=== PATIENT | female | born 1950 | race Caucasian/White ===

== ENCOUNTER 2023-07-23 10:32 | Inpatient (IN) ==
--- NOTE | 2023-07-23 11:03 | Emergency Department Note ---
Impression & Plan Hypoxia, Leg swelling, Back pain ED Provider Note Provider: Sha Ramon MD DATE OF SERVICE: 07/23/2023 CHIEF COMPLAINT: Leg swelling, upper back pain HISTORY OF PRESENT ILLNESS: Patient is a 73-year-old female smoker history of aortic aneurysm status postrepair by report presenting here today via ambulance from her apartment. Patient states over the last several days she had increased swelling of her bilateral legs now have become somewhat red and painful. CT is also been experiencing for undetermined amount of time some pain in the lower thoracic back that hurts more with a deep breath. Patient is a longtime smoker. States she does not normally go to the doctor and has not seen a doctor in years. Does not take any medications. Found by EMS to be hypoxic into the 80s on room air. Denies any acute chest pain or abdominal pain to me. Son of the bilateral lower legs but denies falls. No fevers clearly reported. PAST MEDICAL HISTORY: As noted above MEDICATIONS: None SOCIAL HISTORY: Smoker PHYSICAL EXAM: GENERAL: alert and oriented in no acute distress on stretcher, nasal cannula in place Head: normocephalic and atraumatic EYES: No injection, discharge or icterus.EOMI. NECK: Trachea midline. ENT: Mucous membranes pink and moist. LUNGS: Airway patent. No retractions. Breath sounds with some expiratory wheeze HEART: Regular rate and rhythm. No chest wall tenderness ABDOMEN: Soft and non-tender, without guarding or rebound. No hepatosplenomegaly or masses BACK: No midline tenderness, no SI joint tenderness. No bilateral flank tenderness. Some diffuse paraspinal tenderness of the mid to lower thoracic region bilaterally without overlying rash or crepitus. SKIN: Acyanotic, warm, dry, without rashes EXTREMITIES: Without swelling, tenderness or deformity of the upper extremities. The bilateral lower extremities below the knees with 2-3+ edema with erythema noted. No open wounds or weeping appreciated. NEUROLOGICAL: No focal deficits. No aphasia. No facial droop or slurred speech. EK bpm normal sinus rhythm. No PVC or PAC. No acute ST segment elevation or depression with a QTc of 385 CONTINUOUS CARDIAC MONITORING: was ordered and showed a heart rate of 80s-90s bpm in sinus rhythm Patient's laboratory studies and imaging reviewed. Differential includes Reactive airway disease, pneumonia, pneumothorax, COPD, CHF, infections, cardiac ischemia, pulmonary embolism, musculoskeletal, gastrointestinal, as well as other pathologies. IMPRESSION/MEDICAL DECISION MAKING: Patient evidently does not follow with medical care and now has new bilateral leg swelling as well as pain in mid thoracic back. Longtime smoker. Hypoxic on room air; stable on 2-3L NC. Question if this is fluid overload. Will exclude underlying pulmonary pathology given her long smoking history and the pain with a CT of the chest. Doubt acute aortic dissection and does have a history of aortic repair in the past. EKG obtained without STEMI. Denies chest pain. Benign abdomen.. Does not seem altered. No focal deficits. Nebulizer to see if this improves her breathing. Chest x-ray does question some findings in the right lower lung area. Again will further elucidate with CT of the chest. Patient later refused CT scan states she cannot lay flat and when advised of limitations with testing she again continued to refuse this. Lower suspicion for PE at this time or bilateral sudden DVT. Blood work without severe abnormalities. No leukocytosis. No significant acute renal dysfunction. Troponin normal. BNP mildly elevated. Respiratory viral panel negative. Albumin normal. Do question more so if the x-ray represents possibly a mass rather than pneumonia at this time. Will begin some diuresis with Lasix given the significant swelling of the lower extremities. Discussed with her staying in the hospital for further workup and evaluation and she was in agreement with this. Patient likely benefit from cardiac echo for further definition of if this is heart related swelling. Did advise her that hopefully some diuresis improved swelling and we may work on trying to complete the CT scans in the near future. She states she would consider this. DIAGNOSIS: Hypoxia, tobacco use, leg swelling DISPOSITION: Hospitalist will evaluate Patient was agreeable with this plan. Past Med/Surg History Medical History (Updated 07/23/23 @ 14:06 by Malia Sanchez PA-C) Sigmoid diverticulitis DVT of upper extremity (deep vein thrombosis) catheter-associated, completed 30 days Eliquis COPD (chronic obstructive pulmonary disease) AAA (abdominal aortic aneurysm) Surgical History (Updated 07/23/23 @ 14:06 by Malia Sanchez PA-C) S/P tonsillectomy S/P AAA repair Social History Smoking Status: Current every day smoker Tobacco Type: Cigarettes Hx Alcohol Use: No Feels Safe at Home: Yes Home Meds Home Medications Medication Instructions Recorded Confirmed fluticasone furoate 100 1 inh inhalation DAILY PRN SOB 07/23/23 07/23/23 mcg-vilanterol 25 mcg/dose inhalation powder (Breo Ellipta) Results & Data (ED) Vital Signs Vital Signs - 24 hr 07/23/23 10:37 07/23/23 10:38 07/23/23 11:03 Temperature 36.8 C Temperature Source Oral Pulse Rate 86 Pulse Rate [Left Apical] Respiratory Rate 20 Respiratory Effort / Characteristics Labored Respiratory Depth Deep Blood Pressure 175/115 H Blood Pressure [Right Arm] Blood Pressure Mean 135 Blood Pressure Mean [Right Arm] Blood Pressure Position Standing Pulse Oximetry 85 L 93 96 Oxygen Delivery Method Room Air Nasal Cannula Nasal Cannula Oxygen Flow Rate 2 2 Sepsis Recent Fever Within 48 Hours No Sepsis New/Unexplained Change in Mental Status No Sepsis Action Taken by Nursing No Action Required 07/23/23 11:46 07/23/23 11:53 07/23/23 12:00 Temperature Temperature Source Pulse Rate 86 83 Pulse Rate [Left Apical] 87 Respiratory Rate 22 21 Respiratory Effort / Characteristics Short of Breath Tripoding Respiratory Depth Blood Pressure 151/109 H Blood Pressure [Right Arm] 150/93 H Blood Pressure Mean 123 Blood Pressure Mean [Right Arm] 112 Blood Pressure Position Pulse Oximetry 98 92 Oxygen Delivery Method Nasal Cannula Nasal Cannula Oxygen Flow Rate 2 2 Sepsis Recent Fever Within 48 Hours Sepsis New/Unexplained Change in Mental Status Sepsis Action Taken by Nursing 07/23/23 12:30 07/23/23 13:00 07/23/23 13:30 Temperature Temperature Source Pulse Rate 84 85 80 Pulse Rate [Left Apical] Respiratory Rate 24 22 21 Respiratory Effort / Characteristics Respiratory Depth Blood Pressure 152/109 H 158/106 H 152/108 H Blood Pressure [Right Arm] Blood Pressure Mean 123 123 122 Blood Pressure Mean [Right Arm] Blood Pressure Position Pulse Oximetry 91 91 93 Oxygen Delivery Method Nasal Cannula Nasal Cannula Nasal Cannula Oxygen Flow Rate 3 3 3 Sepsis Recent Fever Within 48 Hours Sepsis New/Unexplained Change in Mental Status Sepsis Action Taken by Nursing 07/23/23 14:00 07/23/23 14:30 Temperature Temperature Source Pulse Rate 88 85 Pulse Rate [Left Apical] Respiratory Rate 23 21 Respiratory Effort / Characteristics Respiratory Depth Blood Pressure 153/89 H 161/100 H Blood Pressure [Right Arm] Blood Pressure Mean 110 120 Blood Pressure Mean [Right Arm] Blood Pressure Position Pulse Oximetry 91 91 Oxygen Delivery Method Nasal Cannula Nasal Cannula Oxygen Flow Rate 3 3 Sepsis Recent Fever Within 48 Hours Sepsis New/Unexplained Change in Mental Status Sepsis Action Taken by Nursing Laboratory Data 07/23/23 11:20 07/23/23 11:20 Lab Results 07/23/23 Range/Units 11:20 WBC 5.95 (4.8-10.8) K/ul RBC 6.26 H (4.20-5.40) M/uL Hgb 17.2 H (12.0-16.0) g/dl Hct 53.2 H (37.0-47.0) % MCV 85.0 (80.0-100.0) fL MCH 27.5 (25.0-34.0) pg MCHC 32.3 (32.0-36.0) g/dL RDW Std Deviation 43.1 (36.4-46.3) fL RDW Coeff of [place] 14.2 (11.5-14.5) % Plt Count 238 (130-400) K/uL MPV 10.8 (9.4-12.4) fL Immature Gran % (Auto) 0.5 % Neut % (Auto) 72.2 % Lymph % (Auto) 19.2 % [place] % (Auto) 6.4 % Eos % (Auto) 1.0 % Baso % (Auto) 0.7 % Neut # (Auto) 4.30 (1.40-6.50) K/uL Lymph # (Auto) 1.14 L (1.20-3.40) K/uL [place] # (Auto) 0.38 (0.11-0.59) K/uL Eos # (Auto) 0.06 (0.00-0.50) K/uL Baso # (Auto) 0.04 (0.00-0.20) K/uL Immature Gran # (Auto) 0.03 (0.01-0.20) K/uL PT 11.5 (9.0-12.0) Seconds INR 1.1 (0.9-1.1) Sodium 133 L (136-145) mmol/L Potassium 4.6 (3.5-5.1) mmol/L Chloride 94 L (98-107) mmol/L Carbon Dioxide 33 H (21-32) mmol/L Anion Gap 6 (3-11) BUN 13 (6-23) mg/dl Creatinine 0.72 (0.6-1.2) mg/dl Est Cr Clr Drug Dosing 77.1 ml/min Est GFR ( Amer) 96.3 ml/min Est GFR (Non-Af Amer) 83.1 ml/min BUN/Creatinine Ratio 18.1 (10-20) Glucose 99 (70-99(Fasting)) mg/dl Lactate 1.3 (0.4-2.0) mmol/L Calcium 9.6 (8.6-10.3) mg/dl Magnesium 2.0 (1.7-2.4) mg/dl Total Bilirubin 0.9 (0.2-1.0) mg/dl AST 11 L (13-39) U/L ALT 6 L (7-52) U/L Alkaline Phosphatase 92 (34-104) U/L Troponin I High Sens 12.3 (0-14) pg/ml B-Natriuretic Peptide 255 H (0-100) pg/ml Total Protein 7.9 (6.0-8.3) gm/dl Albumin 4.5 (3.4-5.0) gm/dl Globulin 3.4 (2.5-4.0) gm/dl Albumin/Globulin Ratio 1.3 (0.9-2) TSH 1.149 (0.300-4.500) uIu/ml Administered Medications Discontinued Medications Albuterol (Albut/Ipratrop 3mg/0.5mg Neb 3 Ml Vial) 3 ml NEB NOW STA; Protocol Stop: 07/23/23 11:04 Last Admin: 07/23/23 11:21 Dose: 3 ml Documented By: [facility] Furosemide (Furosemide 40 Mg/4 Ml Vial) 40 mg IV ONE ONE Stop: 07/23/23 13:06 Last Admin: 07/23/23 13:50 Dose: 40 mg Documented By: [facility] Ketorolac Tromethamine (Ketorolac Tromethamine 15 Mg/Ml Vial) 10 mg IV NOW ONE Stop: 07/23/23 13:41 Last Admin: 07/23/23 13:46 Dose: 10 mg Documented By: [facility] Imaging Data Radiologist's Impression: Chest X-Ray 07/23/23 10:57 XR chest 1V portable CLINICAL HISTORY: weakness TECHNIQUE: Single frontal radiograph of the chest was obtained. Comparison: None available at the time of this dictation. FINDINGS: No lines and tubes are seen. Cardiomegaly is noted. The aortic arch is calcified. Right lung base airspace opacity is noted. Small right pleural effusion. IMPRESSION: Small right pleural effusion. Right lung airspace opacity may represent aspiration, pneumonia, and/or atelectasis. ACT 112: Negative or not required by law. Electronically signed by: Scottie Esteves M.D. 07/23/2023 11:10 AM Discharge Plan Visit Data Chief Complaint: Edema To Extremity Stated Complaint: BACK PAIN, BILAT LEG EDEMA ED Provider: Sha Ramon Discharge Problem: Hypoxia, Leg swelling, Back pain Patient Disposition: Admitted As Inpatient Discharge Instructions Interventions: ED Discharge Assessment Last Done: 07/23/23 15:24
--- NOTE | 2023-07-23 11:11 | XRay Report ---
XR chest 1V portable CLINICAL HISTORY: weakness TECHNIQUE: Single frontal radiograph of the chest was obtained. Comparison: None available at the time of this dictation. FINDINGS: No lines and tubes are seen. Cardiomegaly is noted. The aortic arch is calcified. Right lung base air space opacity is noted. Small right pleural effusion. IMPRESSION: Small right pleural effusion. Right lung airspace opacity may represent aspiration, pneumonia, and/or atelectasis. ACT 112: Negative or not required by law. Electronically signed by: Scottie Esteves M.D. 07/23/2023 11:10 AM
[2023-07-23] MEDS: ALBUT/IPRATROP 3MG/0.5MG NEB 3 ML VIAL NEB STA (11:21)
[2023-07-23 11:53] LABS: Basophils # (auto) 0.04 K/uL (0.00-0.20); Basophils % (auto) 0.7 %; Eosinophils # (auto) 0.06 K/uL (0.00-0.50); Hematocrit (blood only) 53.2 % (37.0-47.0); Hemoglobin 17.2 g/dl (12.0-16.0); Immature Granulocytes # (auto) 0.03 K/uL (0.01-0.20); Immature Granulocytes % (auto) 0.5 %; Lymphocytes # (auto) 1.14 K/uL (1.20-3.40); Lymphocytes % (auto) 19.2 %; Mean Corpuscular Hemoglobin 27.5 pg (25.0-34.0); Mean Corpuscular Hgb Conc 32.3 g/dL (32.0-36.0); Mean Platelet Volume 10.8 fL (9.4-12.4); Monocytes # (auto) 0.38 K/uL (0.11-0.59); Monocytes % (auto) 6.4 %; Neutrophils % (auto) 72.2 %; Platelet Count 238 K/uL (130-400); RDW Coefficient of Variation 14.2 % (11.5-14.5); RDW Standard Deviation 43.1 fL (36.4-46.3); Red Blood Count 6.26 M/uL (4.20-5.40); White Blood Count 5.95 K/ul (4.8-10.8)
[2023-07-23 12:09] LABS: Albumin Globulin Ratio 1.3 (0.9-2); Albumin Level 4.5 gm/dl (3.4-5.0); BUN Creatinine Ratio 18.1 (10-20); Bilirubin,Total 0.9 mg/dl (0.2-1.0); Calcium 9.6 mg/dl (8.6-10.3); Creatinine Clr Calc Pharmacy 77.1 ml/min; Est GFR (African American) 96.3 ml/min; Est GFR (Non-African American) 83.1 ml/min; Globulin 3.4 gm/dl (2.5-4.0); Potassium 4.6 mmol/L (3.5-5.1); Total Protein 7.9 gm/dl (6.0-8.3)
[2023-07-23 12:14] LABS: Troponin I High Sensitivity 12.3 pg/ml (0-14)
[2023-07-23 12:19] LABS: INR 1.1 (0.9-1.1); Prothrombin Time 11.5 Seconds (9.0-12.0)
[2023-07-23 12:20] LABS: Adenovirus PCR Not Detected (NotDetected); Bordetella parapertussis PCR Not Detected (NotDetected); Bordetella pertussis PCR Not Detected (NotDetected); Chlamydia pneumoniae PCR Not Detected (NotDetected); Coronavirus 229E PCR Not Detected (NotDetected); Coronavirus CoV-2 (COVID19)PCR Not Detected (NotDetected); Coronavirus HKU1 PCR Not Detected (NotDetected); Coronavirus NL63 PCR Not Detected (NotDetected); Coronavirus OC43PCR Not Detected (NotDetected); Human Metapneumovirus PCR Not Detected (NotDetected); Influenza A PCR Not Detected (NotDetected); Influenza B PCR Not Detected (NotDetected); Mycoplasma pneumoniae PCR Not Detected (NotDetected); Parainfluenza Virus 1 PCR Not Detected (NotDetected); Parainfluenza Virus 2 PCR Not Detected (NotDetected); Parainfluenza Virus 3 PCR Not Detected (NotDetected); Parainfluenza Virus 4 PCR Not Detected (NotDetected); Respiratory Syncytial VirusPCR Not Detected (NotDetected); Rhinovirus/Enterovirus PCR Not Detected (NotDetected)
[2023-07-23 12:24] LABS: Thyroid Stimulating Hormone 1.149 uIu/ml (0.300-4.500)
[2023-07-23] MEDS: KETOROLAC TROMETHAMINE 15 MG/ML VIAL IV ONE (13:46)
[2023-07-23] MEDS: FUROSEMIDE 40 MG/4 ML VIAL IV ONE (13:50)
--- NOTE | 2023-07-23 14:06 | History & Physical Report ---
Date of Service July 23, 2023 Assessment & Plan (1) Hypoxia: Plan: This is a 73 y/o female with history of ruptured infrarenal AAA s/p repair, sigmoid diverticulitis w/ abscess requiring IR drainage, COPD, and prior catheter-associated UE DVT who presents today with worsening LE edema and erythema. She was also noted to be hypoxic in the ED and placed on supplemental O2 with improvement of Pox into the low 90s. She has a history of COPD but is not using her maintenance inhaler regularly. She has a history of catheter- associated DVT but no history of unprovoked clot. She does continue to smoke 1 PPD and has no interest in quitting. Suspect hypoxia to be multi-factorial including underlying COPD and component of fluid overload (?CHF). Her current EF is not known. - Admit to PCU - Check ECHO - Continue supplemental O2 titrated to maintain sat of 90% - Schedule Myriamo, ricardo Hutchinson - Discussed with patient the reason for the CTA of the chest, specifically the need to r/o PE with her history of prior DVT and current tachycardia/hypoxia. She is hesitant but will consider. For now, check bilateral venous duplex U/S to evaluate for LE DVT as the etiology of her edema - Empiric antibiotic coverage with Rocephin for possible cellulitis though considered less likely (2) Leg swelling: Plan: See plan for #1 (3) COPD (chronic obstructive pulmonary disease): Plan: Chronic, not taking maintenance medication Ongoing tobacco use - declines to quit at this time Breo daily as discussed with ricardo Hutchinson Mucinex, IS, flutter valve (4) Back pain: Plan: Unclear etiology - further evaluation with CTA chest when patient agreeable Lidoderm patch ordered Plan Pt seen and reviewed with collaborating physician, Dr. Souza. Plan of care discussed and as outlined above. Code status: Full code DVT Prophylaxis: Lovenox pending evaluation - if positive for PE, may consider heparin gtt Pt's daughter, Stacy, was at the bedside and contributed to the history. She requests to be kept updated via phone - [phone]. Shaista Sanchez PA-C History of Present Illness Chief Complaint: legs are swollen Primary Care Provider: NO PCP This is a 73 y/o female with history of ruptured infrarenal AAA s/p repair, sigmoid diverticulitis w/ abscess requiring IR drainage, COPD, and prior catheter-associated UE DVT who presents today with worsening LE edema and erythema. Pt notes that she does not regularly get medical care and prefers to avoid taking any medications. Her last outpatient visit was in early 2022 in f/u from admission for AAA. She developed an UE DVT during that admission associated with a catheter and was treated with Eliquis for 30 days, after which she stopped this medication on her own. She was prescribed Breo for COPD but only been using this intermittently as needed, usually 3x per week, but feels like this isn't helping. A few weeks ago, she developed LE edema, which has subsequently worsened in severity. Over the last few days, she has noted erythema of her legs, worse on the left. She denies significant calf pain but notes soreness associated with the swelling. She denies fevers, chills, chest pain, palpitations, or significant dyspnea. She also c/o thoracic back pain across the back bilaterally but does not radiate to her chest. She smokes 1 PPD but has no interest in quitting. Declines nicotine patch. She drinks one pot of coffee per day, no ETOH. In the ED, she was noted to be hypoxic in the 80s so was started on supplemental O2. ED provider recommended pt undergo a CTA of the chest but she declined as she stated that she could not lie flat for the test. Allergies Allergy/AdvReac Type Severity Reaction Status Date / Time aspirin Allergy Unknown Verified 07/23/23 16:50 Home Medications Medication Instructions Recorded Confirmed Type fluticasone furoate 100 1 inh inhalation DAILY PRN SOB 07/23/23 07/23/23 History mcg-vilanterol 25 mcg/dose inhalation powder (Breo Ellipta) Past Med/Surg History Medical History (Updated 07/23/23 @ 17:07 by Malia Sanchez PA-C) COPD (chronic obstructive pulmonary disease) Sigmoid diverticulitis DVT of upper extremity (deep vein thrombosis) catheter-associated, completed 30 days Eliquis AAA (abdominal aortic aneurysm) Surgical History S/P tonsillectomy S/P AAA repair Social History Smoking Status: Current every day smoker Tobacco Type: Cigarettes Cigarettes Per Day: 20; Do You Dip or Chew Tobacco: No; Hx Alcohol Use: No Hx Substance Use: No Preferred Language: Qatari Communication Ability: Effective Senior Controls Technician Required: No Beliefs That Will Affect Care: None Current Living Situation: Alone Feels Safe at Home: Yes Assistive Devices: Walker Review of Systems Review of Systems: All systems reviewed & are unremarkable except as noted in HPI & below Constitutional: + fatigue; no fever and no chills Eyes: no diplopia Ear, Nose, Mouth, Throat: no nasal congestion and no sore throat Respiratory: as per Subjective / HPI Cardiovascular: + edema; no chest pain and no palpitatio ns Gastrointestinal: no abdominal pain, no vomiting and no diarrhea/loose stools Genitourinary: no dysuria and no hematuria Musculoskeletal: + back pain Integumentary: no rash and no yellowing of the skin Neurologic: no dizziness, no syncope, no headache(s) and no confusion Physical Exam Physical Exam: General: awake, alert, NAD HEENT: wearing sunglasses, moist oral mucosa Neck: supple, trachea midline Heart: RRR Lungs: diminished but no wheezing or rhonchi at present Abdomen: soft, NT, +BS Extremities: bilateral LE 2+ pitting edema to knees with associated erythema but no warmth, minimally tender to palpation Neurologic: moving all extremities, no confusion or dysarthria Results & Data Results & Data Vital Signs (Past 12 Hours) Vital Signs Temp Pulse Pulse Resp BP BP Pulse Ox 07/23/23 14:00 88 23 153/89 H 91 07/23/23 13:30 80 21 152/108 H 93 07/23/23 13:00 85 22 158/106 H 91 07/23/23 12:30 84 24 152/109 H 91 07/23/23 12:00 83 21 151/109 H 92 07/23/23 11:53 86 07/23/23 11:46 87 22 150/93 H 98 07/23/23 11:03 96 07/23/23 10:38 93 07/23/23 10:37 36.8 C 86 20 175/115 H 85 L O2 Del Method O2 Flow Rate 07/23/23 14:00 Nasal Cannula 3 07/23/23 13:30 Nasal Cannula 3 07/23/23 13:00 Nasal Cannula 3 07/23/23 12:30 Nasal Cannula 3 07/23/23 12:00 Nasal Cannula 2 07/23/23 11:53 07/23/23 11:46 Nasal Cannula 2 07/23/23 11:03 Nasal Cannula 2 07/23/23 10:38 Nasal Cannula 2 07/23/23 10:37 Room Air Laboratory Results Laboratory Results - last 24 hr 07/23/23 07/23/23 11:20 Unknown WBC 5.95 RBC 6.26 H Hgb 17.2 H Hct 53.2 H MCV 85.0 MCH 27.5 MCHC 32.3 RDW Std Deviation 43.1 RDW Coeff of [place] 14.2 Plt Count 238 MPV 10.8 Immature Gran % (Auto) 0.5 Neut % (Auto) 72.2 Lymph % (Auto) 19.2 [place] % (Auto) 6.4 Eos % (Auto) 1.0 Baso % (Auto) 0.7 Neut # (Auto) 4.30 Lymph # (Auto) 1.14 L [place] # (Auto) 0.38 Eos # (Auto) 0.06 Baso # (Auto) 0.04 Immature Gran # (Auto) 0.03 PT 11.5 INR 1.1 Sodium 133 L Potassium 4.6 Chloride 94 L Carbon Dioxide 33 H Anion Gap 6 BUN 13 Creatinine 0.72 Est Cr Clr Drug Dosing 77.1 Est GFR ( Amer) 96.3 Est GFR (Non-Af Amer) 83.1 BUN/Creatinine Ratio 18.1 Glucose 99 Lactate 1.3 Calcium 9.6 Magnesium 2.0 Total Bilirubin 0.9 AST 11 L ALT 6 L Alkaline Phosphatase 92 Troponin I High Sens 12.3 B-Natriuretic Peptide 255 H Total Protein 7.9 Albumin 4.5 Globulin 3.4 Albumin/Globulin Ratio 1.3 TSH 1.149 Adenovirus (PCR) Not Detected B. pertussis DNA (PCR) Not Detected B.parapertussis DNA PCR Not Detected C. pneumoniae DNA (PCR) Not Detected Coronavirus OC43 (PCR) Not Detected Coronavirus HKU1 (PCR) Not Detected Coronavirus 229E (PCR) Not Detected SARS-CoV-2 (PCR) Not Detected Coronavirus NL63 (PCR) Not Detected Human Metapneumovir PCR Not Detected Influenza Type A (PCR) Not Detected Influenza Type B (PCR) Not Detected M. pneumoniae (PCR) Not Detected Parainfluenza 1 (PCR) Not Detected Parainfluenza 2 (PCR) Not Detected Parainfluenza 3 (PCR) Not Detected Parainfluenza 4 (PCR) Not Detected RSV (PCR) Not Detected Entero/Rhino (PCR) Not Detected Diagnostic Findings Chest X-Ray 07/23/23 10:57 XR chest 1V portable CLINICAL HISTORY: weakness TECHNIQUE: Single frontal radiograph of the chest was obtained. Comparison: None available at the time of this dictation. FINDINGS: No lines and tubes are seen. Cardiomegaly is noted. The aortic arch is calcified. Right lung base airspace opacity is noted. Small right pleural effusion. IMPRESSION: Small right pleural effusion. Right lung airspace opacity may represent aspiration, pneumonia, and/or atelectasis. ACT 112: Negative or not required by law. Electronically signed by: Scottie Esteves M.D. 07/23/2023 11:10 AM Medications Administered Discontinued Medications Albuterol (Albut/Ipratrop 3mg/0.5mg Neb 3 Ml Vial) 3 ml NEB NOW STA; Protocol Stop: 07/23/23 11:04 Last Admin: 07/23/23 11:21 Dose: 3 ml Documented By: [facility] Furosemide (Furosemide 40 Mg/4 Ml Vial) 40 mg IV ONE ONE Stop: 07/23/23 13:06 Last Admin: 07/23/23 13:50 Dose: 40 mg Documented By: [facility] Ketorolac Tromethamine (Ketorolac Tromethamine 15 Mg/Ml Vial) 10 mg IV NOW ONE Stop: 07/23/23 13:41 Last Admin: 07/23/23 13:46 Dose: 10 mg Documented By: [facility] Supervising Physician Co-Signing Physician Notes Pt seen and examined by me, care coordinated w/ Shaista Sanchez PA-C, pls refer to her note above for further detail. This is a 73 y/o female with history of ruptured infrarenal AAA s/p repair, sigmoid diverticulitis w/ abscess requiring IR drainage, COPD, and prior catheter-associated UE DVT who presents today with worsening LE edema and erythema. She was found hypoxic into 80s by EMS and currently is on 3L of suppl. O2 in the ED. She says she has pulse ox at home and usually is about 87% on RA a t rest, she says she has suppl. O2 but is not using it at home. CXR in the ED w/ poss. R lower lung opacity and ED provider ordered CT chest to clarify further however pt declined. She did receive lasix in the ED. Currently sitting up in bed in NAD, she is awake, alert able to answer appropriately. She is breathing currently comfortable via NC. Lung sounds are diminished , no wheezing noted. Heart sounds regular. Abdomen, soft, nontender, nondistended. + LE edema and erythema noted. Blood cultx, procalcitonin ordered. Echo ordered. LE doppler ordered to rule dvt. Will start empiric rocephin for poss. cellulits. Discussed CT chest with the pt again and she is now agreeable, will follow results. Will cont. home Breo, and will provide prn duonebs. MD [place] (3) COPD (chronic obstructive pulmonary disease) COPD type: emphysema Emphysema type: unspecified Qualified Code(s): J43.9 - Emphysema, unspecified (4) Back pain Back pain laterality: bilateral Back pain location: thoracic back pain Chronicity: acute Qualified Code(s): M54.6 - Pain in thoracic spine
[2023-07-23] MEDS ORDERED: ALBUT/IPRATROP 3MG/0.5MG NEB 3 ML VIAL NEB PRN (15:01)
[2023-07-23] MEDS: OPTIRAY 320 125ml IV ONE (16:45)
--- NOTE | 2023-07-23 16:59 | CT Scan Report ---
CT angio chest PE protocol CLINICAL HISTORY: PE TECHNIQUE: Multidetector row helical CT of the chest was performed with angiographic protocol. Snowden l and sagittal reformations were obtained. Coronal and sagittal MIPS were obtained from the axial sam a set and were submitted for review. Automated dose lowering techniques and/or adjustment according to patient size were utilized for this exam. CT DOSE: 785.71 mGy.cm Comparison: Comparison is made to chest radiograph 07/23/2023 FINDINGS: Lungs and pleura: Diffuse centrilobular and paraseptal emphysema is seen most prominent in the upper lobes. 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 A fat density lesion measuring 5 mm in the left upper lobe ( series 4 image 121). Heart and pericardium: Cardiomegaly is seen with biatrial enlargement. Vessels: No evidence of pulmonary embolism. Pulmonary trunk measures 35 mm. Mediastinum and moira: Unremarkable. Chest wall and lower neck: Unremarkable. Abdomen: Thickening of the bilateral adrenal glands is seen. There is reflux of contrast into the IVC which can be seen in heart failure. Bones: Degenerative changes in the thoracic spine. IMPRESSION: 1. No acute abnormality and in particular no evidence of pulmonary embolus. 2. Extensive emphysema is again seen. 3. Cardiomegaly, pulmonary hypertension, and findings compatible with CHF. ACT 112: Negative or not required by law. Electronically signed by: Scottie Esteves M.D. 07/23/2023 4:57 PM
[2023-07-23] MEDS: cefTRIAXone SODIUM 2,000 MG in DEXTROSE 5 % MINI-B 50 ML IV SCH (18:03)
[2023-07-23] MEDS: guaiFENesin 600 MG TABCR PO SCH (18:18)
[2023-07-23] MEDS: Patient's ALLERGY Info needs ENTERED SCH (19:48)
--- NOTE | 2023-07-23 21:24 | Ultrasound Report ---
Exam(s): US VENOUS BILATERAL LOWER EXTREMITIES EXAM: US Duplex Bilateral Lower Extremities Veins CLINICAL HISTORY: Reason for exam: bilateral LE edema, r/o DVT. TECHNIQUE: Real-time duplex ultrasound scan of the bilateral lower extremity veins integrating B-mode two-dimensional vascular structure, Doppler spectral analysis, color flow Doppler imaging and compression. COMPARISON: No relevant prior studies available. FINDINGS: Right deep veins: Unremarkable. The visualized deep veins of the right lower extremity are compressible with color flow. No visualized thrombus. Right superficial veins: Unremarkable. Left deep veins: Unremarkable. The visualized deep veins of the left lower extremity are compressible with color flow. No visualized thrombus. Left superficial veins: Unremarkable. Soft tissues: Subcutaneous soft tissue edema bilaterally. IMPRESSION: No thrombus within the lower extremities. Electronically signed by: Samuel Moon MD 07/23/23 21:23 PM
[2023-07-23] MEDS: LORazepam 0.5 MG TAB PO STA (21:37)
[2023-07-23] MEDS: LIDOCAINE 5% 1 PATCH TD STA (21:38)
--- NOTE | 2023-07-24 00:23 | Electrocardiogram Report ---
Test Reason : Blood Pressure : / mmHG Vent. Rate : 084 BPM Atrial Rate : 084 BPM P-R Int : 122 ms QRS Dur : 076 ms QT Int : 326 ms P-R-T Axes : 046 061 015 degrees QTc Int : 385 ms Poor data quality, interpretation may be adversely affected Normal sinus rhythm Cannot rule out Anterior infarct , age undetermined Abnormal ECG No previous ECGs available Confirmed by Eran Campa ([id number]) on 07/24/2023 12:23:15 AM Referred By: Confirmed By:Eran Campa
[2023-07-24] MEDS: KETOROLAC TROMETHAMINE 15 MG/ML VIAL IV ONE (05:07)
[2023-07-24] MEDS: ENOXAPARIN INJ 40 MG/0.4 ML SYR SQ SCH (08:26)
[2023-07-24] MEDS: FLUTICASONE/VILANTEROL 100/25MCG 14 PUFFS/INHALER INH SCH (08:26)
[2023-07-24 08:43] LABS: Hematocrit (blood only) 49.3 % (37.0-47.0); Hemoglobin 15.6 g/dl (12.0-16.0); Mean Corpuscular Hemoglobin 27.1 pg (25.0-34.0); Mean Corpuscular Hgb Conc 31.6 g/dL (32.0-36.0); Mean Corpuscular Volume 85.6 fL (80.0-100.0); Mean Platelet Volume 10.3 fL (9.4-12.4); Platelet Count 196 K/uL (130-400); RDW Coefficient of Variation 14.1 % (11.5-14.5); RDW Standard Deviation 43.8 fL (36.4-46.3); Red Blood Count 5.76 M/uL (4.20-5.40)
[2023-07-24 08:59] LABS: BUN Creatinine Ratio 20.5 (10-20); Calcium 9.1 mg/dl (8.6-10.3); Creatinine Clr Calc Pharmacy 69.2 ml/min; Est GFR (African American) 87.4 ml/min; Est GFR (Non-African American) 75.4 ml/min; Potassium 4.4 mmol/L (3.5-5.1)
--- NOTE | 2023-07-24 10:47 | Hospitalist Progress Note ---
Date of Service July 24, 2023 Assessment & Plan (1) Acute respiratory failure with hypoxia: (2) Hypoxia: (3) Leg swelling: (4) COPD (chronic obstructive pulmonary disease): Plan: 73 y/o female with history of ruptured infrarenal AAA s/p repair, sigmoid diver ticulitis w/ abscess requiring IR drainage, COPD, and prior catheter-associated UE DVT who presents today with worsening LE edema and erythema. Was noted to be hypoxic in the ER. Chest x-ray noted small right pleural effusion. Right lung opacity which may be pneumonia or atelectasis. Chest CT PE was negative for PE but noted right Bochdalek hernia, extensive emphysema, cardiomegaly, pulmonary hypertension and findings compatible with CHF. Procalcitonin was negative. Respiratory PCR was negative Leg swelling and other findings suggestive of congestive heart failure picture Skin changes appear to be bilateral stasis dermatitis changes and does not appear cellulitic at this time No other sign of infection based on history and lab work as well Will dc ceftriaxone for now and monitor LE dopplers were negative for DVT Will start IV lasix I/O Daily weight Awaiting TTE Check A1c, lipid panel Will appreciate Cardiology loraine Has COPD and has not been on Breo Ellipta as prescribed. Only uses it sometimes. Patient has not followed up with family doctor in a while. Per last family doctor's outpatient notes, she did not like taking medications and stopped certain medications she was on on her own. Counseled patient regarding these Patient reports that she is ready to take medication going forward and follow-up with her doctors. Counseled patient regarding smoking cessation. She reported that she is willing to quit. Patient having some rhonchi this morning and requiring 3 L of oxygen to keep saturation at 90%. Will give nebs. Continue Breo. Wean oxygen (5) Back pain: Plan: CT PE noted degenerative changes in thoracic spine Lidoderm patch Tylenol prn DVT ppx- lovenox sq Full code Daughter's no [phone]. (Stacy) I spent a total of 55 minutes coordinating, documenting and providing care for this patient excluding time spent in performance of separately billed services Admission and Anticipated Discharge Date Admission Date: July 23, 2023 Subjective Patient seen and examined. Reports bilateral leg swelling for sometime but seemed to have worsened in the past couple of days with skin changes. No fever or chills. She denies shortness of breath at rest but states that she is not sure if she has some exertional dyspnea. Has chronic orthopnea. Usually sleeps sitting up Denied chest pain, palpitations, PND Anxious about her leg swelling this morning Physical Exam Constitutional: + well hydrated; no acute distress Eyes: PERRL, conjunctivae normal, anicteric sclerae ENMT: external ear and nose normal, oropharynx normal Respiratory: normal respiratory effort; no respiratory distress Diminished breath sounds, expiratory rhonchi Cardiovascular: Rate/Rhythm: regular rate and regular rhythm S1-S2 Gastrointestinal (Abdomen): normal bowel sounds, soft, nontender, no hepatosplenomegaly Musculoskeletal: Bilateral pitting edema involving the feet and both legs. Neurologic: PERRL, EOMI, accommodation nl, no face palsy, no dysarthria Psychiatric: A+Ox3, euthymic affect Results & Data Results & Data Vital Signs (Past 12 Hours) Vital Signs Temp Pulse Pulse Resp BP Pulse Ox O2 Del Method 07/24/23 07:53 36.3 C L 105 H 19 133/84 90 Nasal Cannula 07/24/23 07:20 Nasal Cannula 07/24/23 06:00 92 H 07/24/23 03:00 36.3 C L 95 H 20 120/74 91 Nasal Cannula 07/23/23 23:00 36.4 C L 93 H 19 118/75 93 Nasal Cannula O2 Flow Rate 07/24/23 07:53 3 07/24/23 07:20 3 07/24/23 06:00 07/24/23 03:00 07/23/23 23:00 Laboratory Results Abnormal lab results 07/23/23 07/24/23 Range/Units 11:20 08:29 RBC 6.26 H 5.76 H (4.20-5.40) M/uL Hgb 17.2 H (12.0-16.0) g/dl Hct 53.2 H 49.3 H (37.0-47.0) % MCHC 31.6 L (32.0-36.0) g/dL Lymph # (Auto) 1.14 L (1.20-3.40) K/uL Sodium 133 L (136-145) mmol/L Chloride 94 L 97 L (98-107) mmol/L Carbon Dioxide 33 H 35 H (21-32) mmol/L BUN/Creatinine Ratio 20.5 H (10-20) Glucose 153 H (70-99(Fasting)) mg/dl AST 11 L (13-39) U/L ALT 6 L (7-52) U/L B-Natriuretic Peptide 255 H (0-100) pg/ml (4) COPD (chronic obstructive pulmonary disease) COPD type: emphysema Emphysema type: unspecified Qualified Code(s): J43.9 - Emphysema, unspecified (5) Back pain Back pain laterality: bilateral Back pain location: thoracic back pain Chronicity: acute Qualified Code(s): M54.6 - Pain in thoracic spine
[2023-07-24 11:28] LABS: Estimated Average Glucose 123 mg/dl; Hemoglobin A1C 5.9 % (4.5-5.6)
[2023-07-24] MEDS: FUROSEMIDE 40 MG/4 ML VIAL IV SCH (11:44)
--- NOTE | 2023-07-24 14:11 | Cardiology Consultation ---
Date of Consultation July 24, 2023 Assessment & Plan (1) Acute respiratory failure with hypoxia: (2) Leg swelling: (3) Cellulitis: (4) Pulmonary HTN: (5) COPD (chronic obstructive pulmonary disease): Plan 73-year-old female with underlying COPD and active tobacco abuse presents due to symptoms of edema and cellulitis. No evidence of DVT per venous duplex. Echocardiogram reveals hyperdynamic left ventricular systolic function and normal diastolic function. There is evidence of RV dilatation with normal RV function. Pulmonary hypertension likely class III, due to underlying pulmonary disease/COPD. Agree with continue diuretic therapy. Follow fluid balance, daily weight, GFR, and electrolytes. Antibiotics per internal medicine. I spent a total of 45 minutes on the date of service in preparation, delivery, and documentation of the care provided to this patient, excluding any time spent in the performance of separately billed services. History of Present Illness Reason for Consultation: Possible heart failure, bilateral lower extremity edema. Requesting Physician: Dr. Lin Attending Physician: Delisa Green MD History of Present Illness 73-year-old female with history of ruptured infrarenal abdominal aortic aneurysm status post repair, COPD, and catheter associated DVT presented to the emergency department due to lower extremity edema and erythema. Denies any chest pain or unusual shortness of breath. Smokes 1 pack of cigarettes per day and has no interest in quitting. Hypoxic in the ER and started on supplemental oxygen. CTA of the chest in the ER negative for pulmonary embolus. Extensive emphysema noted. Currently she is resting comfortably. Voices concern regarding discomfort of her bilateral feet. Notes erythema for several days prior to admission. Denies fever, chills, or recent injury, skin breakdown, or falls. Allergies Allergy/AdvReac Type Severity Reaction Status Date / Time aspirin Allergy Unknown Verified 07/23/23 16:50 Home Medications Medication Instructions Recorded Confirmed Type fluticasone furoate 100 1 inh inhalation DAILY PRN SOB 07/23/23 07/23/23 History mcg-vilanterol 25 mcg/dose inhalation powder (Breo Ellipta) Patient History Medical History (Updated 07/24/23 @ 14:22 by Antonio Keene DO) COPD (chronic obstructive pulmonary disease) Sigmoid diverticulitis DVT of upper extremity (deep vein thrombosis) catheter-associated, completed 30 days Eliquis AAA (abdominal aortic aneurysm) Surgical History S/P tonsillectomy S/P AAA repair Social History Smoking Status: Current every day smoker Tobacco Type: Cigarettes Cigarettes Per Day: 20; Do You Dip or Chew Tobacco: No; Hx Alcohol Use: No Hx Substance Use: No Preferred Language: Belarusian Communication Ability: Effective [place] Cutter Required: No Beliefs That Will Affect Care: None Current Living Situation: Alone Feels Safe at Home: Yes Assistive Devices: Walker Review of Systems Review of Systems: All systems reviewed & are unremarkable except as noted in Subjective Physical Exam Constitutional: well nourished; no acute distress Respiratory: no respiratory distress, no labored breathing and no retractions Auscultation: + diminished lung sounds; no rales, no rhonchi and no wheezes Cardiovascular: Rate/Rhythm: regular rate and regular rhythm Heart Sounds: normal S1 and normal S2; no murmur Vessels: no JVD Extremities: + edema (+ Bilateral lower extremity erythema) Gastrointestinal (Abdomen): Inspection/Auscultation: abdomen normal to inspection and normal bowel sounds; abdomen not distended Percussion/Palpation: abdomen soft; abdomen nontender, no guarding and abdomen not rigid Neurologic: CN's II-XI intact bilaterally and moves all extremities; no focal motor deficits Results & Data Vital Signs (Past 12 Hours) Vital Signs Temp Pulse Pulse Resp BP Pulse Ox O2 Del Method 07/24/23 11:55 36.7 C 88 19 131/80 92 Nasal Cannula 07/24/23 07:53 36.3 C L 105 H 19 133/84 90 Nasal Cannula 07/24/23 07:20 Nasal Cannula 07/24/23 06:00 92 H 07/24/23 03:00 36.3 C L 95 H 20 120/74 91 Nasal Cannula O2 Flow Rate 07/24/23 11:55 3 07/24/23 07:53 3 07/24/23 07:20 3 07/24/23 06:00 07/24/23 03:00 Laboratory Results CBC 07/24/23 Range/Units 08:29 WBC 6.70 (4.8-10.8) K/ul RBC 5.76 H (4.20-5.40) M/uL Hgb 15.6 (12.0-16.0) g/dl Hct 49.3 H (37.0-47.0) % Plt Count 196 (130-400) K/uL Comprehensive Metabolic Panel 07/24/23 Range/Units 08:29 Sodium 137 (136-145) mmol/L Potassium 4.4 (3.5-5.1) mmol/L Chloride 97 L (98-107) mmol/L Carbon Dioxide 35 H (21-32) mmol/L BUN 16 (6-23) mg/dl Creatinine 0.78 (0.6-1.2) mg/dl Glucose 153 H (70-99(Fasting)) mg/dl Calcium 9.1 (8.6-10.3) mg/dl Intake and Output 07/23/23 07/24/23 07/24/23 22:59 06:59 14:59 Intake Total 50 / 50 Output Total 600 / 600 Balance -550 / -550 Intake: IV 50 / 50 cefTRIAXone SODIUM 2,000 mg In 50 / 50 Dextrose 5 % Mini-B 50 ml @ 100 mls/hr IV Q24H [facility] Rx#: [id number] Output: Urine Amount (Catheter) 600 / 600 External 600 / 600 Other: # Unmeasured Voids 1 Weight 80.9 kg 81.6 kg Weight Measurement Method [facility] in [facility] Diagnostic Findings 2D echocardiogram report summary 07/24/2023: Left ventricle is hyperdynamic. LVEF > 70% Moderate right ventricular dilatation. Normal right ventricular function. Moderate right atrial dilatation. Mild tricuspid regurgitation. Severe pulmonary hypertension. (3) Cellulitis Site of cellulitis: extremity Site of cellulitis of extremity: lower extremity Laterality: unspecified laterality Qualified Code(s): L03.119 - Cellulitis of unspecified part of limb (5) COPD (chronic obstructive pulmonary disease) COPD type: emphysema Emphysema type: unspecified Qualified Code(s): J43.9 - Emphysema, unspecified
[2023-07-24] MEDS: ACETAMINOPHEN 325 MG TAB PO PRN (16:19)
[2023-07-24] MEDS: LORazepam 0.5 MG TAB PO STA (20:28)
[2023-07-25 06:56] LABS: Hematocrit (blood only) 49.2 % (37.0-47.0); Hemoglobin 15.8 g/dl (12.0-16.0); Mean Corpuscular Hemoglobin 27.4 pg (25.0-34.0); Mean Corpuscular Hgb Conc 32.1 g/dL (32.0-36.0); Mean Corpuscular Volume 85.4 fL (80.0-100.0); Platelet Count 199 K/uL (130-400); RDW Coefficient of Variation 13.8 % (11.5-14.5); RDW Standard Deviation 42.9 fL (36.4-46.3); Red Blood Count 5.76 M/uL (4.20-5.40); White Blood Count 6.49 K/ul (4.8-10.8)
[2023-07-25 07:19] LABS: BUN Creatinine Ratio 23.5 (10-20); Calcium 9.3 mg/dl (8.6-10.3); Chol HDL Ratio 4.3 (0-5); Creatinine Clr Calc Pharmacy 78.3 ml/min; Est GFR (African American) 100.6 ml/min; Est GFR (Non-African American) 86.8 ml/min; Potassium 4.5 mmol/L (3.5-5.1)
--- NOTE | 2023-07-25 11:35 | Hospitalist Progress Note ---
Date of Service July 25, 2023 Assessment & Plan (1) Acute respiratory failure with hypoxia: (2) Hypoxia: (3) Leg swelling: (4) COPD (chronic obstructive pulmonary disease): Plan: 73 y/o female with history of ruptured infrarenal AAA s/p repair, sigmoid diver ticulitis w/ abscess requiring IR drainage, COPD, and prior catheter-associated UE DVT who presents today with worsening LE edema and erythema. Was noted to be hypoxic in the ER. Chest x-ray noted small right pleural effusion. Right lung opacity which may be pneumonia or atelectasis. Chest CT PE was negative for PE but noted right Bochdalek hernia, extensive emphysema, cardiomegaly, pulmonary hypertension and findings compatible with CHF. Procalcitonin was negative. Respiratory PCR was negative Leg swelling and other findings suggestive of congestive heart failure picture Skin changes appear to be bilateral stasis dermatitis changes and does not appear cellulitic at this time No other sign of infection based on history and lab work as well Ceftriaxone was stopped LE dopplers were negative for DVT Echo showed hyperdynamic left ventricle, EF of more than 70%, moderately dilated RV, RVSF is normal, RA is moderately dilated, mild TR, PASP of 72 History and findings suggestive of pulmonary hypertension. Possible right heart failure Continue IV Lasix. Will give additional dose this afternoon and monitor. Intake and output. RN reported patient had some incontinence hence not correct in the past 24h Daily weights Cardiology evaluation appreciated. Hemoglobin A1c is 5.9. Hence, patient has prediabetes. Counseled patient about this. Has COPD and has not been on Breo Ellipta as prescribed. Only uses it sometimes. Patient has not followed up with family doctor in a while. Per last family doctor's outpatient notes, she did not like taking medications and stopped certain medications she was on on her own. Had counseled patient about these Patient reported that she is ready to take medication going forward and follow- up with her doctors. Counseled again regarding smoking cessation especially with COPD and findings of pulmonary hypertension. She reported that she is willing to quit. Continue Breo. Wean oxygen Will get 2 step prior to discharge (5) Back pain: Plan: CT PE noted degenerative changes in thoracic spine Lidoderm patch Tylenol prn DVT ppx- lovenox sq Full code PT/OT eval Daughter's no [phone]. (Stacy) I spent a total of 50 minutes coordinating, documenting and providing care for this patient excluding time spent in performance of separately billed services Admission and Anticipated Discharge Date Admission Date: July 23, 2023 Subjective Patient seen and examined. Reports feeling better today Reported dry cough No SOB Some improvement in leg edema No fever or chills. Has chronic orthopnea. Usually sleeps sitting up. Was able to lay down and sleep with 3 pillows per RN Denied chest pain, palpitations Physical Exam Constitutional: + well hydrated; no acute distress Eyes: PERRL, conjunctivae normal, anicteric sclerae ENMT: external ear and nose normal, oropharynx normal Respiratory: normal respiratory effort; no respiratory distress Diminished breath sounds Cardiovascular: Rate/Rhythm: regular rate and regular rhythm S1 S2 Gastrointestinal (Abdomen): normal bowel sounds, soft, nontender, no hepatosplenomegaly Musculoskeletal: +b/l Pedal edema Neurologic: PERRL, EOMI, accommodation nl, no face palsy, no dysarthria Psychiatric: A+Ox3, euthymic affect Results & Data Results & Data Vital Signs (Past 12 Hours) Vital Signs Temp Pulse Pulse Resp BP Pulse Ox O2 Del Method 07/25/23 10:54 36.5 C 88 18 92/55 L 92 Room Air 07/25/23 07:20 Nasal Cannula 07/25/23 07:11 36.8 C 83 22 110/69 88 L Nasal Cannula 07/25/23 03:00 36.8 C 85 21 120/73 93 Nasal Cannula O2 Flow Rate 07/25/23 10:54 07/25/23 07:20 3 07/25/23 07:11 3 07/25/23 03:00 Laboratory Results Abnormal lab results 07/25/23 Range/Units 06:25 RBC 5.76 H (4.20-5.40) M/uL Hct 49.2 H (37.0-47.0) % Chloride 93 L (98-107) mmol/L Carbon Dioxide 39 H (21-32) mmol/L BUN/Creatinine Ratio 23.5 H (10-20) Cholesterol 234 H (0-200) mg/dl (4) COPD (chronic obstructive pulmonary disease) COPD type: emphysema Emphysema type: unspecified Qualified Code(s): J43.9 - Emphysema, unspecified (5) Back pain Back pain laterality: bilateral Back pain location: thoracic back pain Chronicity: acute Qualified Code(s): M54.6 - Pain in thoracic spine
[2023-07-25] MEDS: FUROSEMIDE INJ 20 MG/2 ML VIAL IV ONE (15:23)
[2023-07-25] MEDS: LORazepam 0.5 MG TAB PO STA (20:17)
[2023-07-26 08:44] LABS: Mean Corpuscular Hemoglobin 27.2 pg (25.0-34.0); Mean Corpuscular Hgb Conc 31.3 g/dL (32.0-36.0); Mean Platelet Volume 10.6 fL (9.4-12.4); Platelet Count 191 K/uL (130-400); RDW Coefficient of Variation 13.7 % (11.5-14.5); RDW Standard Deviation 43.6 fL (36.4-46.3); Red Blood Count 5.52 M/uL (4.20-5.40); White Blood Count 7.41 K/ul (4.8-10.8)
[2023-07-26 08:57] LABS: BUN Creatinine Ratio 19.5 (10-20); Calcium 9.2 mg/dl (8.6-10.3); Creatinine Clr Calc Pharmacy 64.3 ml/min; Est GFR (African American) 82.3 ml/min; Magnesium 1.7 mg/dl (1.7-2.4); Phosphorus 3.9 mg/dl (2.5-4.9); Potassium 3.8 mmol/L (3.5-5.1)
--- NOTE | 2023-07-26 14:27 | Hospitalist Progress Note ---
Date of Service July 26, 2023 Assessment & Plan (1) Acute respiratory failure with hypoxia: (2) Hypoxia: (3) Leg swelling: (4) COPD (chronic obstructive pulmonary disease): Plan: 73 y/o female with history of ruptured infrarenal AAA s/p repair, sigmoid diver ticulitis w/ abscess requiring IR drainage, COPD, and prior catheter-associated UE DVT who presents today with worsening LE edema and erythema. Was noted to be hypoxic in the ER. Chest x-ray noted small right pleural effusion. Right lung opacity which may be pneumonia or atelectasis. Chest CT PE was negative for PE but noted right Bochdalek hernia, extensive emphysema, cardiomegaly, pulmonary hypertension and findings compatible with CHF. Procalcitonin was negative. Respiratory PCR was negative Leg swelling and other findings suggestive of congestive heart failure picture Skin changes appear to be bilateral stasis dermatitis changes and does not appear cellulitic at this time No other sign of infection based on history and lab work as well Ceftriaxone was stopped LE dopplers were negative for DVT Echo showed hyperdynamic left ventricle, EF of more than 70%, moderately dilated RV, RVSF is normal, RA is moderately dilated, mild TR, PASP of 72 History and findings suggestive of pulmonary hypertension. Possible right heart failure Continue IV Lasix. Will give additional dose this afternoon and monitor. Continue daily weights Cardiology evaluation appreciated. Hemoglobin A1c is 5.9. Hence, patient has prediabetes. Has been counseled about this. Has COPD and has not been on Breo Ellipta as prescribed. Only uses it sometimes. Patient has not followed up with family doctor in a while. Per last family doctor's outpatient notes, she did not like taking medications and stopped certain medications she was on on her own. Had counseled patient about these Patient reported that she is ready to take medication going forward and follow- up with her doctors. Had provided counseling regarding smoking cessation especially with COPD and findings of pulmonary hypertension. She reported that she is willing to quit. Continue Breo. Wean oxygen Will get 2 step prior to discharge (5) Back pain: Plan: CT PE noted degenerative changes in thoracic spine Lidoderm patch Tylenol prn DVT ppx- lovenox sq Full code PT/OT eval Possible dc tomorrow Daughter's no [phone]. (Stacy) I spent a total of 40 minutes coordinating, documenting and providing care for this patient excluding time spent in performance of separately billed services Admission and Anticipated Discharge Date Admission Date: July 23, 2023 Subjective Patient seen and examined. Reports feeling better today Denied cough Reports mild SOB with activity Denied chest pain Leg swelling is improvign Denied fever, chills, nausea, vomiting, abd pain, diarrhea Physical Exam Constitutional: + well hydrated; no acute distress Eyes: PERRL, conjunctivae normal, anicteric sclerae ENMT: external ear and nose normal, oropharynx normal Respiratory: normal respiratory effort; no respiratory distress globally diminished breath sounds Cardiovascular: Rate/Rhythm: regular rate and regular rhythm S1 S2 Gastrointestinal (Abdomen): normal bowel sounds, soft, nontender, no hepatosplenomegaly Musculoskeletal: +Bilateral leg edema. improving Stasis skin changes Neurologic: PERRL, EOMI, accommodation nl, no face palsy, no dysarthria Psychiatric: A+Ox3, euthymic affect Results & Data Results & Data Vital Signs (Past 12 Hours) Vital Signs Temp Pulse Resp BP Pulse Ox O2 Del Method O2 Flow Rate 07/26/23 11:55 36.6 C 78 21 103/68 91 Nasal Cannula 3.0 07/26/23 07:47 36.6 C 86 20 110/72 91 Nasal Cannula 4.0 07/26/23 07:35 Nasal Cannula 3 07/26/23 04:02 36.6 C 71 20 104/68 90 Nasal Cannula 4 Laboratory Results Abnormal lab results 07/26/23 Range/Units 08:25 RBC 5.52 H (4.20-5.40) M/uL Hct 48.0 H (37.0-47.0) % MCHC 31.3 L (32.0-36.0) g/dL Sodium 134 L (136-145) mmol/L Chloride 90 L (98-107) mmol/L Carbon Dioxide 39 H (21-32) mmol/L Glucose 216 H (70-99(Fasting)) mg/dl (4) COPD (chronic obstructive pulmonary disease) COPD type: emphysema Emphysema type: unspecified Qualified Code(s): J43.9 - Emphysema, unspecified (5) Back pain Back pain laterality: bilateral Back pain location: thoracic back pain Chronicity: acute Qualified Code(s): M54.6 - Pain in thoracic spine
[2023-07-26] MEDS: FUROSEMIDE 40 MG/4 ML VIAL IV ONE (16:11)
[2023-07-26] MEDS: LORazepam 0.5 MG TAB PO STA (20:29)
[2023-07-27 06:12] LABS: Hematocrit (blood only) 46.7 % (37.0-47.0); Mean Corpuscular Hemoglobin 27.3 pg (25.0-34.0); Mean Corpuscular Hgb Conc 32.1 g/dL (32.0-36.0); Mean Corpuscular Volume 85.1 fL (80.0-100.0); Mean Platelet Volume 10.6 fL (9.4-12.4); Platelet Count 170 K/uL (130-400); RDW Coefficient of Variation 13.6 % (11.5-14.5); RDW Standard Deviation 42.5 fL (36.4-46.3); Red Blood Count 5.49 M/uL (4.20-5.40)
[2023-07-27 06:36] LABS: BUN Creatinine Ratio 23.1 (10-20); Calcium 9.2 mg/dl (8.6-10.3); Creatinine Clr Calc Pharmacy 67.4 ml/min; Est GFR (African American) 87.4 ml/min; Est GFR (Non-African American) 75.4 ml/min; Magnesium 1.9 mg/dl (1.7-2.4); Potassium 4.1 mmol/L (3.5-5.1)
[2023-07-27] MEDS: FUROSEMIDE 40 MG TAB PO SCH (09:19)
[2023-07-27 10:12] LABS: Base Excess ABG 16.6 mEq/L (-9-1.8); HCO3 ABG 45 mmol/L (19-24); Oxygen Saturation ABG 93.1 % (90-95); PCO2 ABG 70 mmHg (35-46); PO2 ABG 63 mmHg (80-95); pH ABG 7.42 (7.35-7.45)
--- NOTE | 2023-07-27 10:13 | XRay Report ---
XR chest 1V portable CLINICAL HISTORY: Hypoxia. COMPARISON STUDY: Chest radiograph and chest CT July 23, 2023. FINDINGS: There is no pneumothorax or pleural effusion. There is underlying emphysema. There is mild interstitial thickening. Cardiomegaly is again noted. Right basilar opacity represents a combination of atelectasis and a Bochdalek hernia when correlating with prior CT. IMPRESSION: 1. Cardiomegaly. Possible mild pulmonary edema. 2. Emphysema. 3. No change in right basilar opacity due to a combination of atelectasis and a Bochdalek hernia when correlating with prior chest CT. ACT 112: Negative or not required by law. Electronically signed by: Rene Barillas M.D. 07/27/2023 10:11 AM
[2023-07-27 10:15] LABS: Allen Test Pos (Pos)
--- NOTE | 2023-07-27 11:08 | Hospitalist Progress Note ---
Date of Service July 27, 2023 Assessment & Plan (1) Acute respiratory failure with hypoxia: (2) Hypoxia: (3) Leg swelling: (4) COPD (chronic obstructive pulmonary disease): Plan: 73 y/o female with history of ruptured infrarenal AAA s/p repair, sigmoid diver ticulitis w/ abscess requiring IR drainage, COPD, and prior catheter-associated UE DVT who presents today with worsening LE edema and erythema. Was noted to be hypoxic in the ER. Chest x-ray noted small right pleural effusion. Right lung opacity which may be pneumonia or atelectasis. Chest CT PE was negative for PE but noted right Bochdalek hernia, extensive emphysema, cardiomegaly, pulmonary hypertension and findings compatible with CHF. Procalcitonin was negative. Respiratory PCR was negative Leg swelling and other findings suggestive of congestive heart failure picture Skin changes appear to be bilateral stasis dermatitis changes and does not appear cellulitic at this time No other sign of infection based on history and lab work as well Ceftriaxone was stopped LE dopplers were negative for DVT Echo showed hyperdynamic left ventricle, EF of more than 70%, moderately dilated RV, RVSF is normal, RA is moderately dilated, mild TR, PASP of 72 History and findings suggestive of pulmonary hypertension. Possible Acute right heart failure Has been on IV lasix Changed to po lasix today. Continue po on discharge Cardiology evaluation appreciated. Hemoglobin A1c is 5.9. Hence, patient has prediabetes. Has been counseled about this. Has COPD and has not been on Breo Ellipta as prescribed. Only uses it sometimes. Patient has not followed up with family doctor in a while. Per last family doctor's outpatient notes, she did not like taking medications and stopped certain medications she was on on her own. Had counseled patient about these Patient reported that she is ready to take medication going forward and follow- up with her doctors. Had provided counseling regarding smoking cessation especially with COPD and findings of pulmonary hypertension. She reported that she is willing to quit. Continue Breo. Provide prescription for this and albuterol prn inhaler on dc Wean oxygen as tolerated Humidify oxygen Loratadine started Based on patient bicarb on admission and ABG (elevated pCO2 70, normal pH) today, she likely has chronic hypercarbia with metabolic compensation Counseled patient on need to followup with Pulmonology. Will get 2 step prior to discharge (5) Back pain: Plan: CT PE noted degenerative changes in thoracic spine Lidoderm patch Tylenol prn DVT ppx- lovenox sq Full code PT/OT eval Plan for dc in AM Daughter's no [phone]. (Stacy) I spent a total of 45 minutes coordinating, documenting and providing care for this patient excluding time spent in performance of separately billed services Admission and Anticipated Discharge Date Admission Date: July 23, 2023 Subjective Patient seen and examined. Reports feeling wiped out with the diuresis yesterday. Reports feeling tired today. Reports some nasal congestion. Denies any chest pain, cough Reports dyspnea on exertion. Denies any other complaints Physical Exam Constitutional: + well hydrated; no acute distress Eyes: PERRL, conjunctivae normal, anicteric sclerae ENMT: external ear and nose normal, oropharynx normal Respiratory: normal respiratory effort; no respiratory distress Globally diminished breath sounds Cardiovascular: Rate/Rhythm: regular rate and regular rhythm S1-S2 Gastrointestinal (Abdomen): normal bowel sounds, soft, nontender, no hepatosplenomegaly Musculoskeletal: Leg edema much improved compared to admission Neurologic: PERRL, EOMI, accommodation nl, no face palsy, no dysarthria Psychiatric: A+Ox3, euthymic affect Results & Data Results & Data Vital Signs (Past 12 Hours) Vital Signs Temp Pulse Pulse Resp BP Pulse Ox O2 Del Method 07/27/23 08:00 71 07/27/23 08:00 Nasal Cannula 07/27/23 07:35 36.5 C 83 20 109/65 90 Nasal Cannula 07/27/23 03:00 36.4 C L 85 18 111/73 91 Nasal Cannula O2 Flow Rate 07/27/23 08:00 07/27/23 08:00 4 07/27/23 07:35 4.5 07/27/23 03:00 4 Laboratory Results Abnormal lab results 07/27/23 07/27/23 Range/Units 05:41 10:06 RBC 5.49 H (4.20-5.40) M/uL ABG pCO2 70 H (35-46) mmHg ABG pO2 63 L (80-95) mmHg ABG HCO3 45 H (19-24) mmol/L ABG Base Excess 16.6 H (-9-1.8) mEq/L Sodium 135 L (136-145) mmol/L Chloride 89 L (98-107) mmol/L Carbon Dioxide 45 H* (21-32) mmol/L Anion Gap 1 L (3-11) BUN/Creatinine Ratio 23.1 H (10-20) Glucose 106 H (70-99(Fasting)) mg/dl (4) COPD (chronic obstructive pulmonary disease) COPD type: emphysema Emphysema type: unspecified Qualified Code(s): J43.9 - Emphysema, unspecified (5) Back pain Back pain laterality: bilateral Back pain location: thoracic back pain Chronicity: acute Qualified Code(s): M54.6 - Pain in thoracic spine
[2023-07-27] MEDS: LORATADINE 10 MG TAB PO SCH (12:17)
[2023-07-27] MEDS: LORazepam 0.5 MG TAB PO STA (20:40)
[2023-07-28 07:36] LABS: BUN Creatinine Ratio 21.9 (10-20); Calcium 9.5 mg/dl (8.6-10.3); Creatinine Clr Calc Pharmacy 72.3 ml/min; Est GFR (African American) 94.7 ml/min; Est GFR (Non-African American) 81.7 ml/min; Hematocrit (blood only) 45.7 % (37.0-47.0); Hemoglobin 15.1 g/dl (12.0-16.0); Magnesium 1.9 mg/dl (1.7-2.4); Mean Corpuscular Hemoglobin 27.5 pg (25.0-34.0); Mean Corpuscular Volume 83.1 fL (80.0-100.0); Phosphorus 3.7 mg/dl (2.5-4.9); Platelet Count 181 K/uL (130-400); Potassium 4.7 mmol/L (3.5-5.1); RDW Coefficient of Variation 13.6 % (11.5-14.5); White Blood Count 6.27 K/ul (4.8-10.8)
[2023-07-28] MEDS: PNEUMOCOCCAL VACCINE (PCV20) 20-VAL CONJ-DIP CRM/PF 0.5 ML SYR IM ONE (09:42)
--- NOTE | 2023-07-28 12:24 | Pulmonary Consultation ---
Date of Consultation July 28, 2023 Assessment & Plan (1) Pulmonary HTN: (2) Chronic respiratory failure with hypercapnia: (3) Hypoxemic respiratory failure, chronic: (4) COPD (chronic obstructive pulmonary disease): COPD type: emphysema Emphysema type: unspecified Qualified Code(s): J43.9 - Emphysema, unspecified Plan Impression: 73-year-old female with significant tobacco history and evidence of profound emphysema on CT scan. She has chronic hypoxemic and hypercarbic respiratory failure. Echocardiogram showed pulmonary hypertension which is likely multifactorial largely due to hypoxemia and hypercarbia. This appears to be the acute recognition of chronic condition for the patient. Recommendations: 1. Hypoxemic and hypercarbic respiratory failure: Would continue supplemental oxygen but given the patient's hypercarbia would not try and target oxygen saturations greater than 85 to 88%. Patient will need supplemental oxygen at discharge and should be compliant with therapy. 2. Outpatient PFTs could be considered. Could consider home Trelegy ventilator if the patient is willing to be compliant and follow-up. Outpatient polysomnogram may be appropriate. 3. She is not bronchospastic currently. No indication of steroids. Can use bronchodilators if she feels they are clinically beneficial. 4. Continue Lasix on a daily basis. No indication for pulmonary vasodilators or right heart catheterization at this point time. Could consider repeating the patient's echocardiogram in 3 to 6 months once contributors to pulmonary hypertension have been adequately addressed and treated. Majority of the patient's issues appear to be chronic in nature and not amenable to acute hospitalization. Recommend the patient be dismissed from the hospital once her oxygen needs can be safely met as an outpatient. She can follow-up in the outpatient pulmonary clinic at discharge. History of Present Illness Attending Physician: Meliton Andrade MD History of Present Illness Asked by hospitalist to assist in evaluation management of this patient with hypoxemic respiratory failure and known COPD. History is obtained from discussion with the patient as well as review of the electronic medical record. Patient is a 73-year-old female who was admitted to the hospital 07/23/2023 with lower extremity edema and erythema suspicious for cellulitis. She was found to be hypoxemic. She has been treated for cellulitis. The patient reports that she is hypoxemic at baseline typically in the mid to high 80% range on room air. She is not been using oxygen although it reportedly has been prescribed for her in the past. She cannot recall if she has had PFTs performed previously. CT scan showed no evidence of pulmonary embolism but did show significant emphysematous changes. Cardiomegaly and increased pulmonary venous pressures were noted. She did have an echocardiogram showing elevated pulmonary arterial pressures. She does not report chronic cough or sputum production. She states she has been given a variety of inhalers in the past but does not really use them as she never felt they offered her clinical benefit. Patient does have a resting CO2 level of about 70 with a markedly elevated bicarb consistent with hypercarbic chronic respiratory failure. Allergies Allergy/AdvReac Type Severity Reaction Status Date / Time aspirin Allergy Unknown Verified 07/23/23 16:50 Home Medications Medication Instructions Recorded Confirmed Type fluticasone furoate 100 1 inh inhalation DAILY PRN SOB 07/23/23 07/23/23 History mcg-vilanterol 25 mcg/dose inhalation powder (Breo Ellipta) Patient History Medical History (Updated 07/28/23 @ 12:19 by Naveed Wells MD) COPD (chronic obstructive pulmonary disease) Sigmoid diverticulitis DVT of upper extremity (deep vein thrombosis) catheter-associated, completed 30 days Eliquis AAA (abdominal aortic aneurysm) Surgical History S/P tonsillectomy S/P AAA repair Social History Smoking Status: Current every day smoker Tobacco Type: Cigarettes Cigarettes Per Day: 20; Do You Dip or Chew Tobacco: No; Hx Alcohol Use: No Hx Substance Use: No Preferred Language: Occitan Communication Ability: Effective Base Remover Required: No Beliefs That Will Affect Care: None Current Living Situation: Alone Feels Safe at Home: Yes Assistive Devices: Walker Review of Systems 2 Review of Systems: Please refer to admission H&P. No additions or deletions Physical Exam 2 Constitutional: WD/WN, vitals as above Neck: trachea midline, no thyromegaly Respiratory: no respiratory distress, no labored breathing, no cough and not tachypneic Auscultation: + diminished lung sounds; no crackles and no wheezes Cardiovascular: RRR, no murmur, no edema Gastrointestinal (Abdomen): normal bowel sounds, soft, nontender, no hepatosplenomegaly Musculoskeletal: Extremities: extremities normal to inspection Skin: no rashes, warm and dry Neurologic: Nonfocal exam Lymphatic: no cervical lymphadenopathy Results & Data Results & Data Vital Signs (Past 12 Hours) Vital Signs Temp Pulse Pulse Resp BP Pulse Ox O2 Del Method 07/28/23 11:45 36.6 C 85 18 132/80 90 High Flow Nasal Cannula 07/28/23 07:52 86 07/28/23 07:52 Nasal Cannula 07/28/23 07:31 36.3 C L 78 18 128/78 92 High Flow Nasal Cannula 07/28/23 02:08 36.5 C 82 18 145/90 H 96 High Flow Nasal Cannula O2 Flow Rate 07/28/23 11:45 07/28/23 07:52 07/28/23 07:52 7 07/28/23 07:31 07/28/23 02:08 8.0 Laboratory Results 07/28/23 06:28 07/28/23 06:[address] angiogram from 07/23/2023 was reviewed. Significant centrilobular and paraseptal emphysematous changes are identified. Select hernias noted. Echocardiogram from 07/24/2023 showed an EF greater than 70% with moderate dilatation of the right ventricle. Right atrium was mildly to moderately dilated with mild tricuspid regurgitation. PA systolic pressure estimated at 70 with a dilated IVC suggesting a right atrial pressure of around 8. No evidence of diastolic dysfunction PG Care Time/CCT Total # of Minutes Spent Total Time Spent with Patient: Total time spent is greater than 50% in coordination of care (as documented) at patient's floor/unit and/or counseling patient: Coding Level of Care Code 42356 INT INP/OBS CARE 375MIN Diagnoses Pulmonary HTN I27.20 Chronic respiratory failure with hypercapnia J96.12 Hypoxemic respiratory failure, chronic J96.11 Pulmonary emphysema, unspecified emphysema type J43.9 COPD type: emphysema Emphysema type: unspecified
[2023-07-28] MEDS: UMECLIDINIUM/VILANTEROL 62.5/25MCG 7 PUFFS/INHALER INH SCH (15:22)
--- NOTE | 2023-07-28 16:38 | Hospitalist Progress Note ---
Date of Service July 28, 2023 Assessment & Plan (1) Acute respiratory failure with hypoxia: (2) Hypoxia: (3) Leg swelling: (4) COPD (chronic obstructive pulmonary disease): Plan: 73 y/o female with history of ruptured infrarenal AAA s/p repair, sigmoid diver ticulitis w/ abscess requiring IR drainage, COPD, and prior catheter-associated UE DVT who presents today with worsening LE edema and erythema. Was noted to be hypoxic in the ER. Acute on chronic hypoxic, hypercarbic respiratory failure Pulmonary hypertension COPD exacerbation Ongoing tobacco use disorder H/O noncompliance with home inhalers as per record --CTA:No acute abnormality and in particular no evidence of pulmonary embolus. Extensive emphysema is again seen. Cardiomegaly, pulmonary hypertension, and findings compatible with CHF. --Venous Doppler:No thrombus within the lower extremities. --Procalcitonin negative. --Respiratory PCR negative Continue supplemental oxygen to keep saturation 88 to 92% Appreciate pulmonology input Will need outpatient PFTs, polysomnography Counseled to quit smoking Continue inhalers Will likely need repeat echo in 3 to 6 months to reevaluate pulmonary hypertension Will need to stop prior to discharge Needs follow-up with pulmonology on discharge Right-sided heart failure Leg swelling and other findings suggestive of congestive heart failure picture Skin changes appear to be bilateral stasis dermatitis changes and does not appear cellulitic at this time --Venous Doppler showed no DVT --Echo showed hyperdynamic left ventricle, EF of more than 70%, moderately dilated RV, RVSF is normal, RA is moderately dilated, mild TR, PASP of 72 Continue diuretics Cardiology was consulted Monitor volume status Prediabetes HbA1c 5.9 (5) Back pain: Plan: CT PE noted degenerative changes in thoracic spine Lidoderm patch Tylenol prn DVT Px: Lovenox SQ Code Status Full code Disposition PT OT prior to discharge Daughter's no [phone]. (Stacy) Admission and Anticipated Discharge Date Admission Date: July 23, 2023 Subjective Patient is seen and examined at bedside States not feeling well when compared to yesterday Reports intermittent shortness of breath Leg swelling improving Saturating low 90s on supplemental oxygen No other complaints Review of Systems Review of Systems: All systems reviewed & are unremarkable except as noted in Subjective Physical Exam Physical Exam: Physical Exam: Vitals signs as noted above General Appearance:Moderately built and nourished, no apparent distress, chronically ill appearing Head: normocephalic, Atraumatic Eyes: normal inspection, EOMI Neck: supple, Trachea midline Respiratory/Chest: Decreased breath sounds, CTA, No accessory muscle use Cardiovascular: S1, S2, + murmur Abdomen/GI:Soft, Non tender, Bowel sounds present Extremities/Musculoskeletal:normal inspection, 1+ pedal edema, chronic venous stasis changes Neurologic/Psych:AAOX3, grossly no focal neurological deficits Skin: normal color, warm Results & Data Results & Data Vital Signs (Past 12 Hours) Vital Signs Temp Pulse Pulse Resp BP Pulse Ox O2 Del Method 07/28/23 14:56 36.6 C 73 20 100/65 90 High Flow Nasal Cannula 07/28/23 11:45 36.6 C 85 18 132/80 90 High Flow Nasal Cannula 07/28/23 07:52 86 07/28/23 07:52 Nasal Cannula 07/28/23 07:31 36.3 C L 78 18 128/78 92 High Flow Nasal Cannula O2 Flow Rate 07/28/23 14:56 07/28/23 11:45 07/28/23 07:52 07/28/23 07:52 7 07/28/23 07:31 Laboratory Results Short CBC 07/28/23 Range/Units 06:28 WBC 6.27 (4.8-10.8) K/ul Hgb 15.1 (12.0-16.0) g/dl Hct 45.7 (37.0-47.0) % Plt Count 181 (130-400) K/uL BMP 07/28/23 06:28 Sodium 130 L Potassium 4.7 Chloride 86 L Carbon Dioxide 43 H* BUN 16 Creatinine 0.73 Glucose 101 H Calcium 9.5 (4) COPD (chronic obstructive pulmonary disease) COPD type: emphysema Emphysema type: unspecified Qualified Code(s): J43.9 - Emphysema, unspecified (5) Back pain Back pain laterality: bilateral Back pain location: thoracic back pain Chronicity: acute Qualified Code(s): M54.6 - Pain in thoracic spine
[2023-07-29 06:36] LABS: Base Excess VBG 14.1 mEq/L; HCO3 VBG 43 mmol/L; Oxygen Saturation VBG < 60.0 %; PCO2 VBG 69 mmHg (38-50); PO2 VBG 29 mmHg
[2023-07-29 06:50] LABS: Hematocrit (blood only) 46.7 % (37.0-47.0); Mean Corpuscular Hemoglobin 27.1 pg (25.0-34.0); Mean Corpuscular Hgb Conc 32.1 g/dL (32.0-36.0); Mean Corpuscular Volume 84.3 fL (80.0-100.0); Mean Platelet Volume 10.7 fL (9.4-12.4); Platelet Count 177 K/uL (130-400); RDW Coefficient of Variation 13.4 % (11.5-14.5); RDW Standard Deviation 41.4 fL (36.4-46.3); Red Blood Count 5.54 M/uL (4.20-5.40); White Blood Count 6.48 K/ul (4.8-10.8)
[2023-07-29 07:06] LABS: BUN Creatinine Ratio 24.6 (10-20); Calcium 9.5 mg/dl (8.6-10.3); Creatinine Clr Calc Pharmacy 87.5 ml/min; Est GFR (African American) 104.2 ml/min; Est GFR (Non-African American) 89.9 ml/min; Magnesium 1.8 mg/dl (1.7-2.4); Potassium 4.3 mmol/L (3.5-5.1)
--- NOTE | 2023-07-29 10:51 | XRay Report ---
XR chest 1V portable CLINICAL HISTORY: Hypoxia. COMPARISON STUDY: Chest CT July 23, 2023. Chest radiograph July 27, 2023. FINDINGS: There is no pneumothorax or pleural effusion. There is no evidence for pulmonary edema. Car diomegaly is unchanged. Bibasilar opacities are unchanged and favor atelectasis or scarring. IMPRESSION: 1. No acute cardiopulmonary findings. 2. No significant change in appearance of the chest. Bibasilar opacities suggestive of atelectasis or scarring. ACT 112: Negative or not required by law. Electronically signed by: Rene Barillas M.D. 07/29/2023 10:50 AM
--- NOTE | 2023-07-29 12:45 | Pulmonology Progress Note ---
Date of Service July 29, 2023 Assessment & Plan (1) Pulmonary HTN: (2) Chronic respiratory failure with hypercapnia: (3) Hypoxemic respiratory failure, chronic: (4) COPD (chronic obstructive pulmonary disease): COPD type: emphysema Emphysema type: unspecified Qualified Code(s): J43.9 - Emphysema, unspecified Plan Impression: 73-year-old female with significant tobacco history and evidence of profound emphysema on CT scan. She has chronic hypoxemic and hypercarbic respiratory failure. Echocardiogram showed pulmonary hypertension which is likely multifactorial largely due to hypoxemia and hypercarbia. This appears to be the acute recognition of chronic condition for the patient. Recommendations: 1. Hypoxemic and hypercarbic respiratory failure: Would continue supplemental oxygen but given the patient's hypercarbia would not try and target oxygen saturations greater than 85 to 88%. Patient will need supplemental oxygen at discharge and should be compliant with therapy. 2. Outpatient PFTs could be considered. Could consider home Trelegy ventilator if the patient is willing to be compliant and follow-up. Outpatient polysomnogram may be appropriate. 3. She is not bronchospastic currently. No indication of steroids. Can use bronchodilators if she feels they are clinically beneficial. 4. Continue Lasix on a daily basis. No indication for pulmonary vasodilators or right heart catheterization at this point time. Could consider repeating the patient's echocardiogram in 3 to 6 months once contributors to pulmonary hypertension have been adequately addressed and treated. Patient appears to be at her pulmonary baseline. She was given my contact information. I would be happy to assist in evaluating her in the outpatient setting. I think she is received maximal benefit from inpatient hospitalization and can be dismissed from the hospital from a respiratory standpoint. Pulmonary will sign off. Feel free to contact us with questions or concerns Admission and Anticipated Discharge Date Admission Date: July 23, 2023 Subjective Patient seen and examined. EMR reviewed. The patient states her breathing is improved. Her oxygen requirement is decreased significantly. She is able to ambulate around the room. She is not coughing or wheezing. She feels like she is at her baseline. Review of Systems 2 Review of Systems: All systems reviewed & are unremarkable except as noted in Subjective Physical Exam 2 Constitutional: WD/WN, vitals as above Neck: trachea midline, no thyromegaly Respiratory: no respiratory distress, no labored breathing, no cough and not tachypneic Auscultation: + diminished lung sounds; no crackles and no wheezes Cardiovascular: RRR, no murmur, no edema Gastrointestinal (Abdomen): normal bowel sounds, soft, nontender, no hepatosplenomegaly Musculoskeletal: Extremities: extremities normal to inspection Skin: no rashes, warm and dry Lymphatic: no cervical lymphadenopathy Results & Data Results & Data Vital Signs (Past 12 Hours) Vital Signs Temp Pulse Pulse Resp BP Pulse Ox O2 Del Method 07/29/23 12:02 91 High Flow Nasal Cannula 07/29/23 11:30 91 High Flow Nasal Cannula 07/29/23 10:38 36.7 C 72 18 121/79 91 High Flow Nasal Cannula 07/29/23 07:48 36.8 C 78 16 123/85 89 L High Flow Nasal Cannula 07/29/23 07:39 69 07/29/23 05:53 90 Nasal Cannula 07/29/23 04:25 90 Nasal Cannula 07/29/23 02:32 36.5 C 80 18 128/86 96 High Flow Nasal Cannula 07/29/23 01:32 75 O2 Flow Rate 07/29/23 12:02 5 07/29/23 11:30 6 07/29/23 10:38 8 07/29/23 07:48 07/29/23 07:39 07/29/23 05:53 3 07/29/23 04:25 3 07/29/23 02:32 6.0 07/29/23 01:32 Laboratory Results 07/29/23 06:23 07/29/23 06:23 PG Care Time/CCT Total # of Minutes Spent Total Time Spent with Patient: Total time spent is greater than 50% in coordination of care (as documented) at patient's floor/unit and/or counseling patient: Coding Level of Care Code 57052 SUB INP/OBS CARE 2/35MIN Diagnoses Pulmonary HTN I27.20 Chronic respiratory failure with hypercapnia J96.12 Hypoxemic respiratory failure, chronic J96.11 Pulmonary emphysema, unspecified emphysema type J43.9 COPD type: emphysema Emphysema type: unspecified
--- NOTE | 2023-07-29 17:59 | Hospitalist Progress Note ---
Date of Service July 29, 2023 Assessment & Plan (1) Acute respiratory failure with hypoxia: (2) Hypoxia: (3) Leg swelling: (4) COPD (chronic obstructive pulmonary disease): Plan: 73 y/o female with history of ruptured infrarenal AAA s/p repair, sigmoid diver ticulitis w/ abscess requiring IR drainage, COPD, and prior catheter-associated UE DVT who presents today with worsening LE edema and erythema. Was noted to be hypoxic in the ER. Acute on chronic hypoxic, hypercarbic respiratory failure Pulmonary hypertension COPD exacerbation Ongoing tobacco use disorder H/O noncompliance with home inhalers as per record --CTA:No acute abnormality and in particular no evidence of pulmonary embolus. Extensive emphysema is again seen. Cardiomegaly, pulmonary hypertension, and findings compatible with CHF. --Venous Doppler:No thrombus within the lower extremities. --Procalcitonin negative. --Respiratory PCR negative Continue supplemental oxygen to keep saturation 88% Appreciate pulmonology input Will need outpatient PFTs, polysomnography Counseled to quit smoking Continue inhalers Will likely need repeat echo in 3 to 6 months to reevaluate pulmonary hypertension Will need 2 step prior to discharge Needs follow-up with pulmonology on discharge Supplemental oxygen requirement variable Continue current management Right-sided heart failure Leg swelling and other findings suggestive of congestive heart failure picture Skin changes appear to be bilateral stasis dermatitis changes and does not appear cellulitic at this time --Venous Doppler showed no DVT --Echo showed hyperdynamic left ventricle, EF of more than 70%, moderately dilated RV, RVSF is normal, RA is moderately dilated, mild TR, PASP of 72 Continue diuretics Cardiology was consulted Monitor volume status Prediabetes HbA1c 5.9 Hyponatremia Likely SIADH Diuretics likely contributing as well Replace and fluid restriction Monitor sodium levels (5) Back pain: Plan: CT PE noted degenerative changes in thoracic spine Lidoderm patch Tylenol prn DVT Px: Lovenox SQ Code Status Full code Disposition PT OT prior to discharge Daughter's no [phone]. (Stacy) Admission and Anticipated Discharge Date Admission Date: July 23, 2023 Subjective Patient is seen and examined at bedside Subjectively feels well Offers no new complaints Supplemental oxygen variable Denies any chest pain, dyspnea, nausea, vomiting, abdominal pain Review of Systems Review of Systems: All systems reviewed & are unremarkable except as noted in Subjective Physical Exam Physical Exam: Physical Exam: Vitals signs as noted above General Appearance:Moderately built and nourished, no apparent distress, chronically ill appearing Head: normocephalic, Atraumatic Eyes: normal inspection, EOMI Neck: supple, Trachea midline Respiratory/Chest: Decreased breath sounds, CTA, No accessory muscle use Cardiovascular: S1, S2, + murmur Abdomen/GI:Soft, Non tender, Bowel sounds present Extremities/Musculoskeletal:normal inspection, 1+ pedal edema, chronic venous stasis changes Neurologic/Psych:AAOX3, grossly no focal neurological deficits Skin: normal color, warm Results & Data Results & Data Vital Signs (Past 12 Hours) Vital Signs Temp Pulse Pulse Resp BP Pulse Ox O2 Del Method 07/29/23 16:46 91 High Flow Nasal Cannula 07/29/23 15:39 86 07/29/23 15:00 36.5 C 82 16 111/73 90 Nasal Cannula 07/29/23 14:22 20 90 Nasal Cannula 07/29/23 13:11 16 91 High Flow Nasal Cannula 07/29/23 12:02 91 High Flow Nasal Cannula 07/29/23 11:30 91 High Flow Nasal Cannula 07/29/23 10:38 36.7 C 72 18 121/79 91 High Flow Nasal Cannula 07/29/23 07:48 36.8 C 78 16 123/85 89 L High Flow Nasal Cannula 07/29/23 07:39 69 O2 Flow Rate 07/29/23 16:46 8 07/29/23 15:39 07/29/23 15:00 3 07/29/23 14:22 3 07/29/23 13:11 4 07/29/23 12:02 5 07/29/23 11:30 6 07/29/23 10:38 8 07/29/23 07:48 07/29/23 07:39 Laboratory Results Short CBC 07/29/23 Range/Units 06:23 WBC 6.48 (4.8-10.8) K/ul Hgb 15.0 (12.0-16.0) g/dl Hct 46.7 (37.0-47.0) % Plt Count 177 (130-400) K/uL BMP 07/29/23 06:23 Sodium 128 L Potassium 4.3 Chloride 86 L Carbon Dioxide 38 H BUN 15 Creatinine 0.61 Glucose 106 H Calcium 9.5 (4) COPD (chronic obstructive pulmonary disease) COPD type: emphysema Emphysema type: unspecified Qualified Code(s): J43.9 - Emphysema, unspecified (5) Back pain Back pain laterality: bilateral Back pain location: thoracic back pain Chronicity: acute Qualified Code(s): M54.6 - Pain in thoracic spine
[2023-07-30 07:58] LABS: BUN Creatinine Ratio 25.4 (10-20); Calcium 9.5 mg/dl (8.6-10.3); Creatinine Clr Calc Pharmacy 83.5 ml/min; Est GFR (African American) 103.1 ml/min; Potassium 4.3 mmol/L (3.5-5.1)
[2023-07-30] MEDS: FUROSEMIDE 20 MG TAB PO SCH (09:50)
--- NOTE | 2023-07-30 12:49 | Hospitalist Progress Note ---
Date of Service July 30, 2023 Assessment & Plan (1) Acute respiratory failure with hypoxia: (2) Hypoxia: (3) Leg swelling: (4) COPD (chronic obstructive pulmonary disease): Plan: 73 y/o female with history of ruptured infrarenal AAA s/p repair, sigmoid diver ticulitis w/ abscess requiring IR drainage, COPD, and prior catheter-associated UE DVT who presents today with worsening LE edema and erythema. Was noted to be hypoxic in the ER. Acute on chronic hypoxic, hypercarbic respiratory failure Pulmonary hypertension COPD exacerbation Ongoing tobacco use disorder H/O noncompliance with home inhalers as per record --CTA:No acute abnormality and in particular no evidence of pulmonary embolus. Extensive emphysema is again seen. Cardiomegaly, pulmonary hypertension, and findings compatible with CHF. --Venous Doppler:No thrombus within the lower extremities. --Procalcitonin negative. --Respiratory PCR negative Continue supplemental oxygen to keep saturation 88% Appreciate pulmonology input Will need outpatient PFTs, polysomnography Counseled to quit smoking Continue inhalers Will likely need repeat echo in 3 to 6 months to reevaluate pulmonary hypertension 2 step: Needs 2 L at rest and 3 L with activity Needs follow-up with pulmonology on discharge Patient not interested in rehab placement Plan to discharge home today Right-sided heart failure Leg swelling and other findings suggestive of congestive heart failure picture Skin changes appear to be bilateral stasis dermatitis changes and does not appear cellulitic at this time --Venous Doppler showed no DVT --Echo showed hyperdynamic left ventricle, EF of more than 70%, moderately dilated RV, RVSF is normal, RA is moderately dilated, mild TR, PASP of 72 Continue diuretics Cardiology was consulted Monitor volume status Prediabetes HbA1c 5.9 Hyponatremia Likely SIADH Diuretics likely contributing as well Fluid restriction Monitor sodium levels (5) Back pain: Plan: CT PE noted degenerative changes in thoracic spine Lidoderm patch Tylenol prn DVT Px: Lovenox SQ Code Status Full code Disposition Home Admission and Anticipated Discharge Date Admission Date: July 23, 2023 Subjective Patient is seen and examined at bedside No new complaints Had 2 step earlier today Supplemental oxygen requirement much improved Currently saturating well on 2 L supplemental oxygen Denies any chest pain, dyspnea, nausea, vomiting, abdominal pain Patient not interested in rehab placement Review of Systems Review of Systems: All systems reviewed & are unremarkable except as noted in Subjective Physical Exam Physical Exam: Physical Exam: Vitals signs as noted above General Appearance:Moderately built and nourished, no apparent distress, chronically ill appearing Head: normocephalic, Atraumatic Eyes: normal inspection, EOMI Neck: supple, Trachea midline Respiratory/Chest: Decreased breath sounds, CTA, No accessory muscle use Cardiovascular: S1, S2, + murmur Abdomen/GI:Soft, Non tender, Bowel sounds present Extremities/Musculoskeletal:normal inspection, 1+ pedal edema, chronic venous stasis changes Neurologic/Psych:AAOX3, grossly no focal neurological deficits Skin: normal color, warm Results & Data Results & Data Vital Signs (Past 12 Hours) Vital Signs Temp Pulse Pulse Resp BP Pulse Ox O2 Del Method 07/30/23 10:47 36.4 C L 76 17 118/78 93 High Flow Nasal Cannula 07/30/23 07:30 82 07/30/23 07:30 Room Air, Nasal Cannula 07/30/23 07:27 36.3 C L 80 20 111/71 90 High Flow Nasal Cannula 07/30/23 02:10 36.8 C 74 18 125/75 93 High Flow Nasal Cannula O2 Flow Rate 07/30/23 10:47 2 07/30/23 07:30 07/30/23 07:30 3 07/30/23 07:27 3 07/30/23 02:10 3 Laboratory Results BMP 07/30/23 07:02 Sodium 129 L Potassium 4.3 Chloride 88 L Carbon Dioxide 39 H BUN 16 Creatinine 0.63 Glucose 98 Calcium 9.5 (4) COPD (chronic obstructive pulmonary disease) COPD type: emphysema Emphysema type: unspecified Qualified Code(s): J43.9 - Emphysema, unspecified (5) Back pain Back pain laterality: bilateral Back pain location: thoracic back pain Chronicity: acute Qualified Code(s): M54.6 - Pain in thoracic spine
--- NOTE | 2023-07-30 13:05 | Discharge Summary ---
Date of Service July 30, 2023 Admission HPI Per Admitting Provider This is a 73 y/o female with history of ruptured infrarenal AAA s/p repair, sigmoid diverticulitis w/ abscess requiring IR drainage, COPD, and prior catheter-associated UE DVT who presents today with worsening LE edema and erythema. Pt notes that she does not regularly get medical care and prefers to avoid taking any medications. Her last outpatient visit was in early 2022 in f/u from admission for AAA. She developed an UE DVT during that admission associated with a catheter and was treated with Eliquis for 30 days, after which she stopped this medication on her own. She was prescribed Breo for COPD but only been using this intermittently as needed, usually 3x per week, but feels like this isn't helping. A few weeks ago, she developed LE edema, which has subsequently worsened in severity. Over the last few days, she has noted erythema of her legs, worse on the left. She denies significant calf pain but notes soreness associated with the swelling. She denies fevers, chills, chest pain, palpitations, or significant dyspnea. She also c/o thoracic back pain across the back bilaterally but does not radiate to her chest. She smokes 1 PPD but has no interest in quitting. Declines nicotine patch. She drinks one pot of coffee per day, no ETOH. In the ED, she was noted to be hypoxic in the 80s so was started on supplemental O2. ED provider recommended pt undergo a CTA of the chest but she declined as she stated that she could not lie flat for the test. Admission Exam Per Admitting Provider General: awake, alert, NAD HEENT: wearing sunglasses, moist oral mucosa Neck: supple, trachea midline Heart: RRR Lungs: diminished but no wheezing or rhonchi at present Abdomen: soft, NT, +BS Extremities: bilateral LE 2+ pitting edema to knees with associated erythema but no warmth, minimally tender to palpation Neurologic: moving all extremities, no confusion or dysarthria Principal Diagnosis Acute on chronic hypoxic, hypercarbic respiratory failure Pulmonary hypertension COPD exacerbation Ongoing tobacco use disorder Right heart failure Hyponatremia Discharge Data Allergies Allergy/AdvReac Type Severity Reaction Status Date / Time aspirin Allergy Unknown Verified 07/23/23 16:50 Consultations 07/23/23 13:39 ED Decision to Admit Stat 07/24/23 10:41 Consult Cardiology Routine 07/28/23 09:51 Consult Pulmonology Routine Procedures Performed Laboratory Results WBC 6.48 K/ul (4.8-10.8) 07/29/23 06:23 RBC 5.54 M/uL (4.20-5.40) H 07/29/23 06:23 Hgb 15.0 g/dl (12.0-16.0) 07/29/23 06:23 Hct 46.7 % (37.0-47.0) 07/29/23 06:23 MCV 84.3 fL (80.0-100.0) 07/29/23 06:23 MCH 27.1 pg (25.0-34.0) 07/29/23 06:23 MCHC 32.1 g/dL (32.0-36.0) 07/29/23 06:23 RDW Std Deviation 41.4 fL (36.4-46.3) 07/29/23 06:23 RDW Coeff of Stanford 13.4 % (11.5-14.5) 07/29/23 06:23 Plt Count 177 K/uL (130-400) 07/29/23 06:23 MPV 10.7 fL (9.4-12.4) 07/29/23 06:23 Immature Gran % (Auto) 0.5 % 07/23/23 11:20 Neut % (Auto) 72.2 % 07/23/23 11:20 Lymph % (Auto) 19.2 % 07/23/23 11:20 Ferry % (Auto) 6.4 % 07/23/23 11:20 Eos % (Auto) 1.0 % 07/23/23 11:20 Baso % (Auto) 0.7 % 07/23/23 11:20 Neut # (Auto) 4.30 K/uL (1.40-6.50) 07/23/23 11:20 Lymph # (Auto) 1.14 K/uL (1.20-3.40) L 07/23/23 11:20 Ferry # (Auto) 0.38 K/uL (0.11-0.59) 07/23/23 11:20 Eos # (Auto) 0.06 K/uL (0.00-0.50) 07/23/23 11:20 Baso # (Auto) 0.04 K/uL (0.00-0.20) 07/23/23 11:20 Immature Gran # (Auto) 0.03 K/uL (0.01-0.20) 07/23/23 11:20 PT 11.5 Seconds (9.0-12.0) 07/23/23 11:20 INR 1.1 (0.9-1.1) 07/23/23 11:20 ABG pH 7.42 (7.35-7.45) 07/27/23 10:06 ABG pCO2 70 mmHg (35-46) H 07/27/23 10:06 ABG pO2 63 mmHg (80-95) L 07/27/23 10:06 ABG HCO3 45 mmol/L (19-24) H 07/27/23 10:06 ABG O2 Saturation 93.1 % (90-95) 07/27/23 10:06 ABG Base Excess 16.6 mEq/L (-9-1.8) H 07/27/23 10:06 Mando Test Pos (Pos) 07/27/23 10:06 VBG pH 7.40 (7.36-7.41) 07/29/23 06:26 VBG pCO2 69 mmHg (38-50) H 07/29/23 06:26 VBG pO2 29 mmHg 07/29/23 06:26 VBG HCO3 43 mmol/L 07/29/23 06:26 VBG O2 Saturation < 60.0 % 07/29/23 06:26 VBG Base Excess 14.1 mEq/L 07/29/23 06:26 Oxygen Given 4.5L 07/27/23 10:06 Sodium 129 mmol/L (136-145) L 07/30/23 07:02 Potassium 4.3 mmol/L (3.5-5.1) 07/30/23 07:02 Chloride 88 mmol/L (98-107) L 07/30/23 07:02 Carbon Dioxide 39 mmol/L (21-32) H 07/30/23 07:02 Anion Gap 2 (3-11) L 07/30/23 07:02 BUN 16 mg/dl (6-23) 07/30/23 07:02 Creatinine 0.63 mg/dl (0.6-1.2) 07/30/23 07:02 Est Cr Clr Drug Dosing 83.5 ml/min 07/30/23 07:02 Est GFR ( Amer) 103.1 ml/min 07/30/23 07:02 Est GFR (Non-Af Amer) 89.0 ml/min 07/30/23 07:02 BUN/Creatinine Ratio 25.4 (10-20) H 07/30/23 07:02 Glucose 98 mg/dl (70-99(Fasting)) 07/30/23 07:02 POC Glucose 99 mg/dl (70-99) 07/28/23 07:04 Estimat Average Glucose 123 mg/dl 07/24/23 08:29 Hemoglobin A1c 5.9 % (4.5-5.6) H 07/24/23 08:29 Osmolality 274 mOsm/kg (280-300) L 07/29/23 10:20 Lactate 1.3 mmol/L (0.4-2.0) 07/23/23 11:20 Calcium 9.5 mg/dl (8.6-10.3) 07/30/23 07:02 Phosphorus 3.7 mg/dl (2.5-4.9) 07/28/23 06:28 Magnesium 1.8 mg/dl (1.7-2.4) 07/29/23 06:23 Total Bilirubin 0.9 mg/dl (0.2-1.0) 07/23/23 11:20 AST 11 U/L (13-39) L 07/23/23 11:20 ALT 6 U/L (7-52) L 07/23/23 11:20 Alkaline Phosphatase 92 U/L (34-104) 07/23/23 11:20 Troponin I High Sens 12.3 pg/ml (0-14) 07/23/23 11:20 B-Natriuretic Peptide 255 pg/ml (0-100) H 07/23/23 11:20 Total Protein 7.9 gm/dl (6.0-8.3) 07/23/23 11:20 Albumin 4.5 gm/dl (3.4-5.0) 07/23/23 11:20 Globulin 3.4 gm/dl (2.5-4.0) 07/23/23 11:20 Albumin/Globulin Ratio 1.3 (0.9-2) 07/23/23 11:20 Triglycerides 90 mg/dl (0-150) 07/25/23 06:25 Cholesterol 234 mg/dl (0-200) H 07/25/23 06:25 LDL Cholesterol, Calc 161 mg/dl 07/25/23 06:25 VLDL Cholesterol, Calc 18 mg/dl (0-30) 07/25/23 06:25 HDL Cholesterol 55 mg/dl 07/25/23 06:25 Cholesterol/HDL Ratio 4.3 (0-5) 07/25/23 06:25 Procalcitonin < 0.02 ng/ml (0-0.5) 07/23/23 11:20 TSH 1.149 uIu/ml (0.300-4.500) 07/23/23 11:20 Urine Osmolality 324 mOsm/kg (500-800) L 07/29/23 Unknown Ur Random Sodium 66 mmol/L 07/29/23 Unknown Adenovirus (PCR) Not Detected (NotDetected) 07/23/23 Unknown B. pertussis DNA (PCR) Not Detected (NotDetected) 07/23/23 Unknown B.parapertussis DNA PCR Not Detected (NotDetected) 07/23/23 Unknown C. pneumoniae DNA (PCR) Not Detected (NotDetected) 07/23/23 Unknown Coronavirus OC43 (PCR) Not Detected (NotDetected) 07/23/23 Unknown Coronavirus HKU1 (PCR) Not Detected (NotDetected) 07/23/23 Unknown Coronavirus 229E (PCR) Not Detected (NotDetected) 07/23/23 Unknown SARS-CoV-2 (PCR) Not Detected (NotDetected) 07/23/23 Unknown Coronavirus NL63 (PCR) Not Detected (NotDetected) 07/23/23 Unknown Hepatitis C Ab (EIA) NON-REACTIVE (NON-REACTIVE) 07/25/23 06:25 Human Metapneumovir PCR Not Detected (NotDetected) 07/23/23 Unknown Influenza Type A (PCR) Not Detected (NotDetected) 07/23/23 Unknown Influenza Type B (PCR) Not Detected (NotDetected) 07/23/23 Unknown M. pneumoniae (PCR) Not Detected (NotDetected) 07/23/23 Unknown Parainfluenza 1 (PCR) Not Detected (NotDetected) 07/23/23 Unknown Parainfluenza 2 (PCR) Not Detected (NotDetected) 07/23/23 Unknown Parainfluenza 3 (PCR) Not Detected (NotDetected) 07/23/23 Unknown Parainfluenza 4 (PCR) Not Detected (NotDetected) 07/23/23 Unknown RSV (PCR) Not Detected (NotDetected) 07/23/23 Unknown Entero/Rhino (PCR) Not Detected (NotDetected) 07/23/23 Unknown Impressions Venous Doppler Study 07/23/23 14:53 Exam(s): US VENOUS BILATERAL LOWER EXTREMITIES EXAM: US Duplex Bilateral Lower Extremities Veins CLINICAL HISTORY: Reason for exam: bilateral LE edema, r/o DVT. TECHNIQUE: Real-time duplex ultrasound scan of the bilateral lower extremity veins integrating B-mode two-dimensional vascular structure, Doppler spectral analysis, color flow Doppler imaging and compression. COMPARISON: No relevant prior studies available. FINDINGS: Right deep veins: Unremarkable. The visualized deep veins of the right lower extremity are compressible with color flow. No visualized thrombus. Right superficial veins: Unremarkable. Left deep veins: Unremarkable. The visualized deep veins of the left lower extremity are compressible with color flow. No visualized thrombus. Left superficial veins: Unremarkable. Soft tissues: Subcutaneous soft tissue edema bilaterally. IMPRESSION: No thrombus within the lower extremities. Electronically signed by: Samuel Moon MD 07/23/23 21:23 PM Chest CTA 07/23/23 15:36 CT angio chest PE protocol CLINICAL HISTORY: PE TECHNIQUE: Multidetector row helical CT of the chest was performed with angiographic protocol. Coronal and sagittal reformations were obtained. Coronal and sagittal MIPS were obtained from the axial data set and were submitted for review. Automated dose lowering techniques and/or adjustment according to patient size were utilized for this exam. CT DOSE: 785.71 mGy.cm Comparison: Comparison is made to chest radiograph 07/23/2023 FINDINGS: Lungs and pleura: Diffuse centrilobular and paraseptal emphysema is seen most prominent in the upper lobes. 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 A fat density lesion measuring 5 mm in the left upper lobe (series 4 image 121). Heart and pericardium: Cardiomegaly is seen with biatrial enlargement. Vessels: No evidence of pulmonary embolism. Pulmonary trunk measures 35 mm. Mediastinum and moira: Unremarkable. Chest wall and lower neck: Unremarkable. Abdomen: Thickening of the bilateral adrenal glands is seen. There is reflux of contrast into the IVC which can be seen in heart failure. Bones: Degenerative changes in the thoracic spine. IMPRESSION: 1. No acute abnormality and in particular no evidence of pulmonary embolus. 2. Extensive emphysema is again seen. 3. Cardiomegaly, pulmonary hypertension, and findings compatible with CHF. ACT 112: Negative or not required by law. Electronically signed by: Scottie Esteves M.D. 07/23/2023 4:57 PM Chest X-Ray 07/29/23 09:24 XR chest 1V portable CLINICAL HISTORY: Hypoxia. COMPARISON STUDY: Chest CT July 23, 2023. Chest radiograph July 27, 2023. FINDINGS: There is no pneumothorax or pleural effusion. There is no evidence for pulmonary edema. Cardiomegaly is unchanged. Bibasilar opacities are unchanged and favor atelectasis or scarring. IMPRESSION: 1. No acute cardiopulmonary findings. 2. No significant change in appearance of the chest. Bibasilar opacities sugge stive of atelectasis or scarring. ACT 112: Negative or not required by law. Electronically signed by: Rene Barillas M.D. 07/29/2023 10:50 AM Ordered Studies 07/23/23 14:53 US venous duplex leg [US venous doppler LE BI] Urgent 07/23/23 15:36 CT angio chest PE protocol Routine Hospital Course (1) Acute respiratory failure with hypoxia: (2) Hypoxia: (3) Leg swelling: (4) COPD (chronic obstructive pulmonary disease): 73 y/o female with history of ruptured infrarenal AAA s/p repair, sigmoid diverticulitis w/ abscess requiring IR drainage, COPD, and prior catheter- associated UE DVT who presents today with worsening LE edema and erythema. Was noted to be hypoxic in the ER. Acute on chronic hypoxic, hypercarbic respiratory failure Pulmonary hypertension COPD exacerbation Ongoing tobacco use disorder H/O noncompliance with home inhalers as per record --CTA:No acute abnormality and in particular no evidence of pulmonary embolus. Extensive emphysema is again seen. Cardiomegaly, pulmonary hypertension, and findings compatible with CHF. --Venous Doppler:No thrombus within the lower extremities. --Procalcitonin negative. --Respiratory PCR negative Continue supplemental oxygen to keep saturation 88% Appreciate pulmonology input Will need outpatient PFTs, polysomnography Counseled to quit smoking Continue inhalers Will likely need repeat echo in 3 to 6 months to reevaluate pulmonary hypertension 2 step: Needs 2 L at rest and 3 L with activity Needs follow-up with pulmonology on discharge Patient not interested in rehab placement Plan to discharge home today Right-sided heart failure Leg swelling and other findings suggestive of congestive heart failure picture Skin changes appear to be bilateral stasis dermatitis changes and does not appear cellulitic at this time --Venous Doppler showed no DVT --Echo showed hyperdynamic left ventricle, EF of more than 70%, moderately dilated RV, RVSF is normal, RA is moderately dilated, mild TR, PASP of 72 Continue diuretics Cardiology was consulted Monitor volume status Prediabetes HbA1c 5.9 Hyponatremia Likely SIADH Diuretics likely contributing as well Fluid restriction Monitor sodium levels (5) Back pain: CT PE noted degenerative changes in thoracic spine Lidoderm patch Tylenol prn DVT Px: Lovenox SQ Code Status Full code Disposition Home Total Time Total Time Spent Total Time Spent (In Minutes): 58 minutes Discharge Plan Discharge Items Patient Disposition: Home - Home Health Services Reason For Visit: HYPOXIA, LE EDEMA Discharge Diagnosis: Acute on chronic hypoxic, hypercarbic respiratory failure Pulmonary hypertension COPD exacerbation Ongoing tobacco use disorder Right heart failure Hyponatremia Activity: Per Instructions section Exercise/Sports: Wait until after follow-up appointment Non-emergency contact: Primary Care Provider and Store Team Member Call non-emergency contact if: you have any medication questions, your symptoms worsen, your pain is concerning for you and you have a fever Follow-up/Referrals: Shalonda Peace MD [Outside Practitioners] - (Date & Time 08/02/2023 11:20 AM Provider Shalonda Peace MD Department Family Practice [facility] ) Diet: Heart Healthy Fluids: 2000ml (8 cups) Addtl Attending Provider Instructions: Follow-up with your primary care physician on 08/02/2023 11:20 AM Follow-up with your exercise planner Dr. Wells in 2-3 weeks as recommended Consider following with your info print press operator Dr. Keene as advised -- Continue supplemental oxygen 2 L at rest and 3 L with activity as advised --Quit smoking as advised -- Obtain blood work (basic metabolic panel) in 1 week and follow-up with your primary care physician with results for monitoring your sodium levels Seek immediate medical attention if your symptoms reoccur or worsen Please take all medications as instructed on discharge list below. Please call if you have any questions or problems. You can reach a [facility] hospitalist on duty at [facility] 24 hours a day by calling [phone] Call your Primary Care doctor if any of the following symptoms or problems start or get worse: * Shortness of breath or difficulty breathing * Wake up at night short of breath * Chest pain * Cough * Swelling of your hands, feet, or legs * More fatigued or tired with your normal activity * Palpitations - sudden fast heart beats WEIGHT * Weigh yourself every morning after using the bathroom. * Use the same scale. * Wear the same amount of clothing. * Write your weight down on a chart. * Call your Primary Care doctor if you gain more than 2-3 pounds in 1-2 days. MEDICATIONS * Use this discharge instruction sheet for medication instructions. * Take your medications at the time your doctor ordered. * Do not skip a dose of your medicines. * If you miss a dose of medicine, take it as soon as possible, but DO NOT DOUBLE A DOSE. * Read your medicine information when you get home. * Know all of the side effects of your medicine. If in doubt, ask your pharmacist * Call your Primary Care doctor's office if you have any side effects. * Be sure all of your doctors know what medicine and herbs you take (including cold, flu, and herbal medicine). Take the following with you to your follow-up doctor appointments: * Weight Chart * Medication List * List of questions Do not drink excessive alcohol, beer or wine. Pending Studies at Discharge: No Stand-Alone Forms: My [facility] [employer], Smoking Cessation Medications and DC Order Prescriptions: New loratadine [Wal-itin] 10 mg Tablet 10 mg PO QAM PRN (Reason: Allergic Symptoms) Qty: 30 0RF Anoro Ellipta 62.5-25 mcg/actuation Blister With Device 1 inh inhalation DAILY Qty: 60 1RF furosemide 20 mg Tablet 20 mg PO QAM Qty: 30 1RF Discontinued fluticasone furoate-vilanterol [Breo Ellipta] 100-25 mcg/dose Blister With Device 1 inh INHALATION DAILY PRN (Reason: SOB) Discharge Orders: Discharge Order (Routine); Ordered 07/30/23 Ordered By: Meliton Andrade Admission Data Admit Date/Time: 07/23/23 14:56 Attending Provider: Meliton Andrade Admit Provider: George Souza Primary Care Provider: PCP,NO Other Providers: George Souza; Terry Rockwell; Yousif Ross; Naveed Wells; Homero Cespedes; Dorcas Tee; Aurora Goodman; Giancarlo Rowley; Eulalio Pearl; Nan Peres; [facility]; [facility]
== END 2023-07-30 17:38 | disposition home health service (06) | DRG 189 ==
LOC: ED 10:32 → 2S 14:56 → SUATTDRO 14:56 → 2S 15:24

== ENCOUNTER 2024-08-30 22:51 | Inpatient (IN) ==
--- NOTE | 2024-08-30 23:17 | Emergency Department Note ---
History of Present Illness General Chief complaint: Shortness of Breath/Dyspnea Stated complaint: SOB, Confusion Time Seen by Provider: 08/30/24 23:04 History of Present Illness This is a 74 y/o female with history of ruptured infrarenal AAA s/p repair, sigmoid diverticulitis w/ abscess requiring IR drainage, COPD, and prior catheter-associated UE DVT who presents today who sats were in the 80s per EMS. Patient seems somewhat confused. She was able to follow commands. History is obtained from nursing. Home Medications Medication Instructions Recorded Confirmed Type furosemide 20 mg tablet 20 mg PO QAM #30 tabs 07/30/23 08/30/24 Rx loratadine 10 mg tablet (Wal-itin) 10 mg PO QAM PRN Allergic Symptoms 07/30/23 08/30/24 Rx #30 tabs umeclidinium 62.5 mcg-vilanterol 1 inh inhalation DAILY #60 ea 07/30/23 08/30/24 Rx 25 mcg/actuation powdr for inhalation (Anoro Ellipta) albuterol sulfate 90 mcg/actuation 1 - 2 puff inhalation UD PRN 08/30/24 08/30/24 History aerosol inhaler (Ventolin HFA) DIRECTED atorvastatin 40 mg tablet 40 mg PO UD 08/30/24 08/30/24 History solifenacin 5 mg tablet 5 mg PO UD 08/30/24 08/30/24 History Allergies Allergy/AdvReac Type Severity Reaction Status Date / Time aspirin Allergy Unknown Verified 07/23/23 16:50 Past Med/Surg History Problem List (Updated 08/31/24 @ 02:18 by Sandra Gallegos PA-C) Acute exacerbation of chronic obstructive airways disease (Acute) Hypoxemic respiratory failure, chronic (Acute) Chronic respiratory failure with hypercapnia Pulmonary HTN Cellulitis COPD (chronic obstructive pulmonary disease) AAA (abdominal aortic aneurysm) Back pain (Acute) Leg swelling (Acute) Medical History (Updated 08/31/24 @ 02:18 by Sandra Gallegos PA-C) Sigmoid diverticulitis DVT of upper extremity (deep vein thrombosis) catheter-associated, completed 30 days Eliquis Surgical History S/P tonsillectomy S/P AAA repair Social History Smoking Status: Current every day smoker Tobacco Type: Cigarettes Cigarettes Per Day: 20; Do You Dip or Chew Tobacco: No; Hx Alcohol Use: No Hx Substance Use: No Preferred Language: Argentine Communication Ability: Effective Wrapping Clerk Required: No Beliefs That Will Affect Care: None Current Living Situation: Alone Feels Safe at Home: Yes Assistive Devices: Walker Review of Systems A total of 10 systems reviewed and were otherwise negative Physical Exam Vital Signs Vital Signs - 24 hr 08/30/24 22:58 08/30/24 23:01 08/30/24 23:13 Temperature 36.5 C Temperature Source Oral Pulse Rate 91 H 89 93 H Pulse Rate [Apical] Pulse Rhythm Regular Respiratory Rate 29 H 30 H Respiratory Effort / Characteristics Non-Labored Spontaneous Respiratory Depth Normal Respiratory Pattern Blood Pressure 129/75 Blood Pressure [Right Arm] Blood Pressure Mean 93 Blood Pressure Mean [Right Arm] Blood Pressure Position Sitting Blood Pressure Position [Right Arm] Pulse Oximetry 98 94 Oxygen Delivery Method Non-rebreather Oxymask Oxygen Flow Rate 5 6 Fraction of Inspired Oxygen Sepsis Recent Fever Within 48 Hours No Sepsis New/Unexplained Change in Mental Status N/A Sepsis Action Taken by Nursing No Action Required 08/31/24 00:00 08/31/24 01:23 08/31/24 01:26 Temperature Temperature Source Pulse Rate 91 H Pulse Rate [Apical] 85 Pulse Rhythm Respiratory Rate 23 22 Respiratory Effort / Characteristics Non-Labored Spontaneous Respiratory Depth Normal Respiratory Pattern Regular Blood Pressure Blood Pressure [Right Arm] 111/66 Blood Pressure Mean Blood Pressure Mean [Right Arm] 81 Blood Pressure Position Blood Pressure Position [Right Arm] Lying Pulse Oximetry 93 98 98 Oxygen Delivery Method BiPAP BiPAP Oxygen Flow Rate Fraction of Inspired Oxygen 60 Sepsis Recent Fever Within 48 Hours Sepsis New/Unexplained Change in Mental Status Sepsis Action Taken by Nursing 08/31/24 01:31 Temperature Temperature Source Pulse Rate Pulse Rate [Apical] Pulse Rhythm Respiratory Rate Respiratory Effort / Characteristics Non-Labored Spontaneous Respiratory Depth Normal Respiratory Pattern Regular Blood Pressure Blood Pressure [Right Arm] Blood Pressure Mean Blood Pressure Mean [Right Arm] Blood Pressure Position Blood Pressure Position [Right Arm] Pulse Oximetry Oxygen Delivery Method BiPAP Oxygen Flow Rate Fraction of Inspired Oxygen Sepsis Recent Fever Within 48 Hours Sepsis New/Unexplained Change in Mental Status Sepsis Action Taken by Nursing VITALS: Vitals are noted on the nurse's note and reviewed by myself. Vital signs O2 mid 90s on oxy mask. GENERAL: White female working to breathe mildly confused, in no acute distress, nondiaphoretic, well-developed well-nourished. SKIN: Bilateral lower legs erythematous and edematous, candidiasis underneath the breast, the rest of the skin was without rashes, erythema, edema, or bruising. There is no tenting of the skin. Capillary reflex less than 2 seconds. HEAD: Normocephalic atraumatic. EARS: External auditory canals clear EYES: Pupils equal round and reactive to light and accommodation. Conjunctivae without injection, sclerae without icterus. Extraocular movements intact. NOSE: Patent, no discharge. MOUTH: Mucous membranes moist. Pharynx without erythema or exudate. Uvula midline. Airway patent. Tongue does not deviate. NECK: Supple without nuchal rigidity. No lymphadenopathy. No thyromegaly. Cervical spine is nontender. No JVD. HEART: Regular rate and rhythm LUNGS: Diffuse inspiratory and end expiratory wheezes. No retractions or accessory muscle use. ABDOMEN: Positive bowel sounds x 4. Normal tympanic percussion. Soft, nontender, without masses or organomegaly. Evans sign negative. No guarding or rebound tenderness. No CVA tenderness MUSCULOSKELETAL: No muscle atrophy, noted. NEURO: Patient was alert and oriented to person and following commands. Normal sensation to light and sharp touch. No focal neurological deficits. Course Administered Medications Discontinued Medications Albuterol (Albut/Ipratrop 3mg/0.5mg Neb 3 Ml Vial) 3 ml INH NOW STA Stop: 08/30/24 23:14 Last Admin: 08/30/24 23:17 Dose: 3 ml Documented By: QGV Furosemide (Furosemide 40 Mg/4 Ml Vial) 40 mg IV ONE ONE Stop: 08/31/24 00:32 Last Admin: 08/31/24 01:23 Dose: 40 mg Documented By: Ceftriaxone Sodium (Rocephin) 2,000 mg in 50 mls @ 100 mls/hr IV NOW STA Stop: 08/31/24 01:55 Last Admin: 08/31/24 02:14 Dose: 100 mls/hr Documented By: Ioversol (Optiray 320 125ml) 118 ml IV ONCE ONE Stop: 08/31/24 00:48 Last Admin: 08/31/24 00:48 Dose: 118 ml Documented By: LINDSAY Methylprednisolone (Methylprednisolone 125 Mg/2 Ml Vial) 125 mg IV NOW STA Stop: 08/30/24 23:14 Last Admin: 08/30/24 23:17 Dose: 125 mg Documented By: QGV Critical Care Time Critical Care Time: Yes Total Critical Care Time: 35 I have personally spent 35 minutes of critical care time in the direct management of this patient. This includes bedside care, interpretation of diagnostic studies, and testing, discussion with consultants, patient, and family members, and other required patient management activities. This 35 minutes is in excess of all separately billable procedures. Medical Decision Making Medical Records Attestation: I reviewed the patient's medical records. Home Medications Current Medication List: was personally reviewed by me Laboratory Data Attestation: I reviewed the patient's lab results. 08/30/24 23:13 08/30/24 23:13 Lab Results 08/30/24 08/30/24 08/31/24 Range/Units 23:05 23:13 01:10 WBC 11.17 H (4.8-10.8) K/ul RBC 4.46 (4.20-5.40) M/uL Hgb 12.7 (12.0-16.0) g/dl Hct 39.0 (37.0-47.0) % MCV 87.4 (80.0-100.0) fL MCH 28.5 (25.0-34.0) pg MCHC 32.6 (32.0-36.0) g/dL RDW Std Deviation 42.7 (36.4-46.3) fL RDW Coeff of [place] 13.4 (11.5-14.5) % Plt Count 240 (130-400) K/uL MPV 10.3 (9.4-12.4) fL Immature Gran % (Auto) 0.9 % Neut % (Auto) 83.4 % Lymph % (Auto) 6.0 % [place] % (Auto) 8.7 % Eos % (Auto) 0.8 % Baso % (Auto) 0.2 % Neut # (Auto) 9.32 H (1.40-6.50) K/uL Lymph # (Auto) 0.67 L (1.20-3.40) K/uL [place] # (Auto) 0.97 H (0.11-0.59) K/uL Eos # (Auto) 0.09 (0.00-0.50) K/uL Baso # (Auto) 0.02 (0.00-0.20) K/uL Immature Gran # (Auto) 0.10 (0.01-0.20) K/uL PT 10.7 (9.0-12.0) Seconds INR 1.0 (0.9-1.1) APTT 30 (21-31) Seconds PTT Ratio 1.1 VBG pH 7.21 L (7.36-7.41) VBG pCO2 > 125 H (38-50) mmHg VBG pO2 87 mmHg VBG HCO3 TNP VBG O2 Saturation 98.4 % VBG Base Excess TNP Sodium 127 L (136-145) mmol/L Potassium 4.6 (3.5-5.1) mmol/L Chloride 75 L (98-107) mmol/L Carbon Dioxide > 45 H* (21-32) mmol/L Anion Gap TNP BUN 10 (6-23) mg/dl Creatinine 0.45 L (0.6-1.2) mg/dl Est Cr Clr Drug Dosing 120.9 ml/min eGFR 100.89 BUN/Creatinine Ratio 22.2 H (10-20) Glucose 165 H (70-99(Fasting)) mg/dl Osmolality 270 L (280-300) mOsm/kg Calcium 9.2 (8.6-10.3) mg/dl Magnesium 1.8 (1.7-2.4) mg/dl Total Bilirubin 0.6 (0.2-1.0) mg/dl AST 17 (13-39) U/L ALT 10 (7-52) U/L Alkaline Phosphatase 83 (34-104) U/L Troponin I High Sens 11.1 (0-14) pg/ml B-Natriuretic Peptide 140 H (0-100) pg/ml Total Protein 7.2 (6.0-8.3) gm/dl Albumin 4.1 (3.4-5.0) gm/dl Globulin 3.1 (2.5-4.0) gm/dl Albumin/Globulin Ratio 1.3 (0.9-2) TSH (0.300-4.500) uIu/ml Urine Color Dark Yellow Urine Appearance Clear (Clear) Urine pH 5.5 (4.5-7.5) Ur Specific [place] 1.036 H (1.000-1.030) Urine Protein 2+ H (Negative) Urine Glucose (UA) Negative (Negative) Urine Ketones Trace H (Negative) Urine Blood Negative (Negative) Urine Nitrite Negative (Negative) Urine Bilirubin 1+ H (Negative) Urine Urobilinogen Negative (Negative) Ur Leukocyte Esterase Negative (Negative) Urine WBC (Auto) 0-5 (0-5) /hpf Urine RBC (Auto) 3-5 H (0-2) /hpf U Hyaline Cast (Auto) 3-5 H (0-2) /lpf U Epithel Cells (Auto) 3-5 H (0-2) /hpf Urine Bacteria (Auto) None Seen (None Seen) Calcium Oxalate Crystal Present A (None Prsent) Urine Osmolality 656 (500-800) mOsm/kg Urine Comment SARS-CoV-2 (PCR) NEGATIVE (Negative) 08/31/24 Range/Units 01:15 WBC (4.8-10.8) K/ul RBC (4.20-5.40) M/uL Hgb (12.0-16.0) g/dl Hct (37.0-47.0) % MCV (80.0-100.0) fL MCH (25.0-34.0) pg MCHC (32.0-36.0) g/dL RDW Std Deviation (36.4-46.3) fL RDW Coeff of [place] (11.5-14.5) % Plt Count (130-400) K/uL MPV (9.4-12.4) fL Immature Gran % (Auto) % Neut % (Auto) % Lymph % (Auto) % [place] % (Auto) % Eos % (Auto) % Baso % (Auto) % Neut # (Auto) (1.40-6.50) K/uL Lymph # (Auto) (1.20-3.40) K/uL [place] # (Auto) (0.11-0.59) K/uL Eos # (Auto) (0.00-0.50) K/uL Baso # (Auto) (0.00-0.20) K/uL Immature Gran # (Auto) (0.01-0.20) K/uL PT (9.0-12.0) Seconds INR (0.9-1.1) APTT (21-31) Seconds PTT Ratio VBG pH 7.17 L (7.36-7.41) VBG pCO2 > 125 H (38-50) mmHg VBG pO2 28 mmHg VBG HCO3 TNP VBG O2 Saturation < 60.0 % VBG Base Excess TNP Sodium (136-145) mmol/L Potassium (3.5-5.1) mmol/L Chloride (98-107) mmol/L Carbon Dioxide (21-32) mmol/L Anion Gap BUN (6-23) mg/dl Creatinine (0.6-1.2) mg/dl Est Cr Clr Drug Dosing ml/min eGFR BUN/Creatinine Ratio (10-20) Glucose (70-99(Fasting)) mg/dl Osmolality (280-300) mOsm/kg Calcium (8.6-10.3) mg/dl Magnesium (1.7-2.4) mg/dl Total Bilirubin (0.2-1.0) mg/dl AST (13-39) U/L ALT (7-52) U/L Alkaline Phosphatase (34-104) U/L Troponin I High Sens 11.3 (0-14) pg/ml B-Natriuretic Peptide (0-100) pg/ml Total Protein (6.0-8.3) gm/dl Albumin (3.4-5.0) gm/dl Globulin (2.5-4.0) gm/dl Albumin/Globulin Ratio (0.9-2) TSH 0.797 (0.300-4.500) uIu/ml Urine Color Urine Appearance (Clear) Urine pH (4.5-7.5) Ur Specific [place] (1.000-1.030) Urine Protein (Negative) Urine Glucose (UA) (Negative) Urine Ketones (Negative) Urine Blood (Negative) Urine Nitrite (Negative) Urine Bilirubin (Negative) Urine Urobilinogen (Negative) Ur Leukocyte Esterase (Negative) Urine WBC (Auto) (0-5) /hpf Urine RBC (Auto) (0-2) /hpf U Hyaline Cast (Auto) (0-2) /lpf U Epithel Cells (Auto) (0-2) /hpf Urine Bacteria (Auto) (None Seen) Calcium Oxalate Crystal (None Prsent) Urine Osmolality (500-800) mOsm/kg Urine Comment SARS-CoV-2 (PCR) (Negative) Imaging Data Attestation: I personally reviewed and interpreted this imaging study as follows: Radiologist's Impression: Chest CTA 08/30/24 23:13 EXAM: CT angio chest PE protocol CLINICAL HISTORY: Dyspnea TECHNIQUE: Contiguous axial images were obtained from the neck base through the upper abdomen following intravenous administration of iodinated contrast material. Angiographic images were processed, 3D MIP images were acquired for interpretation. If IV contrast material had not been administered, the likelihood of detecting abnormalities relevant to the patient's condition would have been substantially decreased. Coronal and sagittal 3-D MIPs were likewise performed and indicated to increase the sensitivity of detectin diffuse clinically relevant pathology. CT scan was performed according to ALARA (as low as reasonable achievable). COMPARISON: None. FINDINGS: Diffuse centrilobular, panlobular and paraseptal emphysema noted in both lungs. Mild dilatation of pulmonary trunk ,bilateral main pulmonary artery up to subsegmental level with mild tortuosity - suggest possibility of pulmonary arterial hypertension. Right side posterior fat containing diaphragmatic hernia. It causes passive subsegmental atelectasis of right basal segments. Few atelectatic bands are noted in right middle and right lower lobe. Adequate contrast bolus without evidence of pulmonary embolism. The central airways are patent No pleural effusion. The heart, aorta, and pulmonary arteries are of normal size and configuration. There are coronary artery and aortic atherosclerotic calcifications. No pericardial effusion is identified. The thyroid is unremarkable. No mediastinal, hilar, or axillary lymphadenopathy is noted. No suspicious lytic or sclerotic osseous lesions are identified. IMPRESSION: 1. No evidence of pulmonary embolism 2. Diffuse centrilobular, panlobular and paraseptal emphysema noted in both lungs.-stable. 3. Mild dilatation of pulmonary trunk ,bilateral main pulmonary artery up to subsegmental level with mild tortuosity - suggest possibility of pulmonary arterial hypertension. -stable. 4. Right side posterior fat containing diaphragmatic hernia. It causes passive subsegmental atelectasis of right basal segments.-stable. Electronically signed by Garry Ortega 08-31-2024 02:00 AM MDM Narrative Prior records/ancillary studies reviewed. Triage Nursing notes reviewed. Additional history obtained from the nursing. The patient's history was concerning for respiratory difficulties. Differential diagnosis: Etiologies such as infections, reactive airway disease, pneumonia, pneumothorax, COPD, CHF, cardiac ischemia, pulmonary embolism, musculoskeletal, gastrointestinal, as well as others were entertained. Physical examination: As above. ER treatment provided: An order was placed for continuous cardiac monitoring. The monitor shows a rate of 60-100 with a sinus rhythm per my interpretation. Nebulizer, Solu-Medrol, oxygen patient was placed on BiPAP as CO2 was quite high And was struggling to breathe Lasix was given for possible heart failure Rocephin was given for possible bacterial COPD exacerbation infection On reassessment the patient felt better. Diagnostic interpretation by me: The electrocardiogram was ordered for SOB. ECG: Normal sinus, poor baseline, no acute ST-T wave changes, rate of 94. Impression normal sinus rhythm independently interpreted by myself The labs Independently Interpreted by myself revealed VBG was reviewed. CO2 was elevated. Patient was placed on BiPAP. BNP is elevated. She was given Lasix. Negative troponin. Hyponatremia and osmolarity levels were ordered Imaging studies: Imaging was reviewed and read by radiology Consultation: A consultation was placed with the hospitalist. The case was discussed and diagnostics were reviewed. The patient was evaluated in the ER for further treatment. This appears to be consistent with COPD and respiratory failure. Patient was medicated as above. Imaging was reviewed. Labs were reviewed. Patient is agreeable treatment plan of admission. Medicine was consulted and case discussed. She will be admitted to the medical service. By the evaluation outlined above emergent etiologies such as pulmonary embolism, reactive airway disease, pneumothorax, musculoskeletal, serious bacterial infections, as well as others were deemed relatively unlikely. The pt informed about the findings as listed above. All questions were answered and pleased with the treatment. The chart was completed utilizing [employer] Speech voice recognition software. Grammatical errors, random word insertions, pronoun errors, and incomplete sentences are an occassional consequence of this system due to software limitations, ambient noise, and hardware issues. Any formal questions or concerns about the content, text, or information contained within the body of this dictation should be directly addressed to the physician materials assistant for clarification. Impression & Plan Acute exacerbation of chronic obstructive airways disease, Hypoxemic respiratory failure, chronic Discharge Plan Visit Data Chief Complaint: Shortness of Breath/Dyspnea Stated Complaint: SOB, Confusion ED Provider: Iris Arora ED Midlevel Provider: Sandra Gallegos Discharge Problem: Acute exacerbation of chronic obstructive airways disease, Hypoxemic respiratory failure, chronic Patient Disposition: Admitted As Inpatient Condition: Fair Forms Stand Alone Forms: My [facility] Prescriptions Prescriptions: No Action atorvastatin 40 mg tablet 40 mg PO UD albuterol sulfate [Ventolin HFA] 90 mcg/actuation HFA aerosol inhaler 1 - 2 puff INHALATION UD PRN (Reason: DIRECTED) solifenacin 5 mg tablet 5 mg PO UD loratadine [Wal-itin] 10 mg Tablet 10 mg PO QAM PRN (Reason: Allergic Symptoms) Qty: 30 0RF umeclidinium-vilanterol [Anoro Ellipta] 62.5-25 mcg/actuation Blister With Device 1 inh inhalation DAILY Qty: 60 1RF furosemide 20 mg Tablet 20 mg PO QAM Qty: 30 1RF Referrals Referrals: PCP,NO [Physician] -
[2024-08-30 23:26] LABS: Oxygen Saturation VBG 98.4 %; PCO2 VBG > 125 mmHg (38-50); PO2 VBG 87 mmHg; pH VBG 7.21 (7.36-7.41)
[2024-08-30 23:30] LABS: Basophils # (auto) 0.02 K/uL (0.00-0.20); Basophils % (auto) 0.2 %; Eosinophils # (auto) 0.09 K/uL (0.00-0.50); Eosinophils % (auto) 0.8 %; Hemoglobin 12.7 g/dl (12.0-16.0); Immature Granulocytes % (auto) 0.9 %; Lymphocytes # (auto) 0.67 K/uL (1.20-3.40); Mean Corpuscular Hemoglobin 28.5 pg (25.0-34.0); Mean Corpuscular Hgb Conc 32.6 g/dL (32.0-36.0); Mean Corpuscular Volume 87.4 fL (80.0-100.0); Mean Platelet Volume 10.3 fL (9.4-12.4); Monocytes # (auto) 0.97 K/uL (0.11-0.59); Monocytes % (auto) 8.7 %; Neutrophils # (auto) 9.32 K/uL (1.40-6.50); Neutrophils % (auto) 83.4 %; Platelet Count 240 K/uL (130-400); RDW Coefficient of Variation 13.4 % (11.5-14.5); RDW Standard Deviation 42.7 fL (36.4-46.3); Red Blood Count 4.46 M/uL (4.20-5.40); White Blood Count 11.17 K/ul (4.8-10.8)
[2024-08-30 23:49] LABS: Alanine Aminotransferase 10 U/L (7-52); Albumin Globulin Ratio 1.3 (0.9-2); Albumin Level 4.1 gm/dl (3.4-5.0); Alkaline Phosphatase 83 U/L (34-104); Aspartate Aminotransferase 17 U/L (13-39); BUN Creatinine Ratio 22.2 (10-20); Bilirubin,Total 0.6 mg/dl (0.2-1.0); Blood Urea Nitrogen 10 mg/dl (6-23); Calcium 9.2 mg/dl (8.6-10.3); Carbon Dioxide > 45 mmol/L (21-32); Chloride 75 mmol/L (98-107); Creatinine Clr Calc Pharmacy 120.9 ml/min; Globulin 3.1 gm/dl (2.5-4.0); Glucose 165 mg/dl (70-99(Fasting)); Magnesium 1.8 mg/dl (1.7-2.4); Potassium 4.6 mmol/L (3.5-5.1); Sodium 127 mmol/L (136-145); Total Protein 7.2 gm/dl (6.0-8.3)
[2024-08-30 23:54] LABS: Troponin I High Sensitivity 11.1 pg/ml (0-14)
[2024-08-31 00:28] LABS: Partial Thromboplastin Ratio 1.1; Partial Thromboplastin Time 30 Seconds (21-31); Prothrombin Time 10.7 Seconds (9.0-12.0)
--- NOTE | 2024-08-31 01:27 | Emergency Department Note ---
ED Visit Note I was consulted by the Advanced Practice Provider. I personally made/approved the management plan and take responsibility for the patient management. I performed a substantive portion of the visit. This includes the aspects of radiology review and interpretation as well as medical decision making. Patient will be referred for admission as she is currently on BiPAP with what appears to be a pneumonia with pleural effusion. Please refer to Halley Gallegos PA-C's notes for further details of the history, physical and visit. .
[2024-08-31 01:32] LABS: Oxygen Saturation VBG < 60.0 %; PCO2 VBG > 125 mmHg (38-50); PO2 VBG 28 mmHg; pH VBG 7.17 (7.36-7.41)
[2024-08-31 01:51] LABS: Appearance Urine Clear (Clear); Bacteria Urine Automated None Seen (None Seen); Bilirubin Urine 1+ (Negative); Blood Urine Negative (Negative); Calcium Oxalate Crystals Urine Present (None Prsent); Color Urine Dark Yellow; Glucose Urine UA Negative (Negative); Ketones Urine Trace (Negative); Leukocyte Esterase Urine Negative (Negative); Nitrite Urine Negative (Negative); Protein Urine 2+ (Negative); Specific Gravity Urine 1.036 (1.000-1.030); Urobilinogen Urine Negative (Negative); WBC Urine Automated 0-5 /hpf (0-5); pH Urine 5.5 (4.5-7.5)
[2024-08-31 02:00] LABS: Troponin I High Sensitivity 11.3 pg/ml (0-14)
--- NOTE | 2024-08-31 02:01 | CT Scan Report ---
EXAM: CT angio chest PE protocol CLINICAL HISTORY: Dyspnea TECHNIQUE: Contiguous axial images were obtained from the neck base through the upper abdomen following intravenous administration of iodinated contrast material. Angiographic images were processed, 3D MIP images were acquired for interpretation. If IV contrast material had not been administered, the likelihood of detecting abnormalities relevant to the patient's condition would have been substantially decreased. Coronal and sagittal 3-D MIPs were likewise performed and indicated to increase the sensitivity of detectin diffuse clinically relevant pathology. CT scan was performed according to ALARA (as low as reasonable achievable). COMPARISON: None. FINDINGS: Diffuse centrilobular, panlobular and paraseptal emphysema noted in both lungs. Mild dilatation of pulmonary trunk ,bilateral main pulmonary artery up to subsegmental level with mild tortuosity - suggest possibility of pulmonary arterial hypertension. Right side posterior fat containing diaphragmatic hernia. It causes passive subsegmental atelectasis of right basal segments. Few atelectatic bands are noted in right middle and right lower lobe. Adequate contrast bolus without evidence of pulmonary embolism. The central airways are patent No pleural effusion. The heart, aorta, and pulmonary arteries are of normal size and configuration. There are coronary artery and aortic atherosclerotic calcifications. No pericardial effusion is identified. The thyroid is unremarkable. No mediastinal, hilar, or axillary lymphadenopathy is noted. No suspicious lytic or sclerotic osseous lesions are identified. IMPRESSION: 1. No evidence of pulmonary embolism 2. Diffuse centrilobular, panlobular and paraseptal emphysema noted in both lungs.-stable. 3. Mild dilatation of pulmonary trunk ,bilateral main pulmonary artery up to subsegmental level with mild tortuosity - suggest possibility of pulmonary arterial hypertension. -stable. 4. Right side posterior fat containing diaphragmatic hernia. It causes passive subsegmental atelectasis of right basal segments.-stable. Electronically signed by Garry Ortega 08-31-2024 02:00 AM
[2024-08-31 02:10] LABS: Thyroid Stimulating Hormone 0.797 uIu/ml (0.300-4.500)
--- NOTE | 2024-08-31 02:31 | History & Physical Report ---
Date of Service August 31, 2024 Assessment & Plan (1) Acute respiratory failure with hypoxia: Plan: Assessment and plan below following discussion of case with ED provider and reviewing patient history/pertinent normal/abnormal diagnostic test results. Acute on chronic hypoxemic, hypercapnic respiratory failure chronic respiratory failure secondary to COPD/pulmonary hypertension Possible underlying OHS History of medical noncompliance Multifactorial: COPD exacerbation secondary to possible aspiration pneumonitis Decompensated heart failure, history of diastolic dysfunction Hypoactive delirium on dementia secondary to above Acute on chronic hypoosmolar hyponatremia secondary to hypervolemia/fluid retention hyperlipidemia on statin Rx valvular heart disease (moderate TR/mild MR) AAA status post surgery hx DVT as per records prediabetes, hemoglobin A1c of 5.9 from last year ongoing tobacco abuse Admit to PCU Tweak current BiPAP settings Recheck VBG Unasyn for possible aspiration pneumonitis, nebs RTC, steroid course, aspiration precautions, [employer]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 Patient noncompliant with medical regimen. DVT prophylaxis. Lovenox subcu DNR as per discussion with patient's daughter/POA Ms. Stacy Garcia. She requests updates from providers through [phone]. Total critical care time was 50 minutes. Text document was generated using [employer] voice recognition software. It may contain grammatical or spelling errors. Kindly contact undersigned for clarification of any documentation item in question. History of Present Illness Chief Complaint: Low oxygen, decreased responsiveness Primary Care Provider: Shalonda Peace MD History obtained from patient's family and records. Limited history from patient secondary to obtunded state. Medical history significant for chronic respiratory failure secondary to COPD/pulmonary hypertension, hyperlipidemia, chronic diastolic heart failure (EF 70%, TTE 2023 ), valvular heart disease (moderate TR/mild MR), AAA status post surgery, chronic hyponatremia, DVT as per records, prediabetes, GERD, diverticulitis as per records, urinary incontinence, dementia as per records, anxiety disorder, ongoing tobacco abuse. Last confinement July 2023 for acute on chronic hypoxic, hypercapnic respiratory failure secondary to COPD exacerbation and right-sided heart failure. Patient evaluated by cardiology and pulmonology during confinement. Patient still smoking and noncompliant with home medications upon return home as per daughter. Patient still smoking. Unquantified weight gain over the last few weeks. Patient known to snore as per daughter. Worsening junky cough symptoms over the last few days. Not sure about sick contacts as per daughter. Gurgly voice noted by daughter, possible aspiration. Patient noted to be increasingly sleepy since yesterday. Lowest O2 sats of 80s documented at patient's regular home. EMS called the patient's home. Solu-Medrol, Lasix, neb treatment and ceftriaxone administered at the ER. BiPAP initiated at the ER. Medical History as above Surgical History : AAA repair, tonsillectomy Family History : Could not be obtained secondary to obtunded state Personal/Social history : 1 pack daily, no EtOH intake, lives with daughter, partial ethnicity as per daughter Allergies Allergy/AdvReac Type Severity Reaction Status Date / Time aspirin Allergy Unknown Verified 07/23/23 16:50 Home Medications Medication Instructions Recorded Confirmed Type furosemide 20 mg tablet 20 mg PO QAM #30 tabs 07/30/23 08/30/24 Rx loratadine 10 mg tablet (Wal-itin) 10 mg PO QAM PRN Allergic Symptoms 07/30/23 08/30/24 Rx #30 tabs umeclidinium 62.5 mcg-vilanterol 1 inh inhalation DAILY #60 ea 07/30/23 08/30/24 Rx 25 mcg/actuation powdr for inhalation (Anoro Ellipta) albuterol sulfate 90 mcg/actuation 1 - 2 puff inhalation UD PRN 08/30/24 08/30/24 History aerosol inhaler (Ventolin HFA) DIRECTED atorvastatin 40 mg tablet 40 mg PO UD 08/30/24 08/30/24 History solifenacin 5 mg tablet 5 mg PO UD 08/30/24 08/30/24 History Past Med/Surg History Problem List (Updated 08/31/24 @ 07:39 by Kal Vora MD) Acute respiratory failure with hypoxia Acute exacerbation of chronic obstructive airways disease (Acute) Hypoxemic respiratory failure, chronic (Acute) Chronic respiratory failure with hypercapnia Pulmonary HTN Cellulitis COPD (chronic obstructive pulmonary disease) AAA (abdominal aortic aneurysm) Back pain (Acute) Leg swelling (Acute) Medical History (Updated 08/31/24 @ 07:39 by Kal Vora MD) Sigmoid diverticulitis DVT of upper extremity (deep vein thrombosis) catheter-associated, completed 30 days Eliquis Surgical History S/P tonsillectomy S/P AAA repair Social History Smoking Status: Current every day smoker Tobacco Type: Cigarettes Cigarettes Per Day: 20; Do You Dip or Chew Tobacco: No; Hx Alcohol Use: No Hx Substance Use: No Preferred Language: Kyrgyz Communication Ability: Effective 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 Beliefs That Will Affect Care: None Current Living Situation: Alone Feels Safe at Home: Yes Safety Concerns: Feels Safe At This Time Assistive Devices: Walker Review of Systems Review of Systems: Could not be reliably obtained secondary to obtunded state Physical Exam Physical Exam: GENERAL: Obtunded, obese, no respiratory distress SKIN: Normal color, warm HEENT: [place] palpebral conjunctivae, no ptosis, dry buccal mucosa, O2 mask in place NECK : Supple, short neck, no tenderness CHEST : Decreased breath sounds, scattered expiratory wheezes, no tenderness HEART : RRR, no obvious murmurs ABDOMEN: Some distention, nontender EXTREMITIES : Minimal LE swelling, no LE tenderness, palpable pulses, no other conspicuous deformities noted NEUROLOGIC : Obtunded, no facial asymmetry, gait and stance not assessed Results & Data Results & Data Vital Signs (Past 12 Hours) Vital Signs Temp Pulse Pulse Resp BP BP Pulse Ox 08/31/24 01:31 08/31/24 01:26 98 08/31/24 01:23 85 22 111/66 98 08/31/24 00:00 91 H 23 93 08/30/24 23:13 93 H 30 H 94 08/30/24 23:01 89 08/30/24 22:58 36.5 C 91 H 29 H 129/75 98 O2 Del Method O2 Flow Rate FiO2 08/31/24 01:31 BiPAP 08/31/24 01:26 BiPAP 08/31/24 01:23 BiPAP 08/31/24 00:00 60 08/30/24 23:13 Oxymask 6 08/30/24 23:01 08/30/24 22:58 Non-rebreather 5 Laboratory Results Laboratory Results WBC 11.17 K/ul (4.8-10.8) H 08/30/24 23:13 RBC 4.46 M/uL (4.20-5.40) 08/30/24 23:13 Hgb 12.7 g/dl (12.0-16.0) 08/30/24 23:13 Hct 39.0 % (37.0-47.0) 08/30/24 23:13 MCV 87.4 fL (80.0-100.0) 08/30/24 23:13 MCH 28.5 pg (25.0-34.0) 08/30/24 23:13 MCHC 32.6 g/dL (32.0-36.0) 08/30/24 23:13 RDW Std Deviation 42.7 fL (36.4-46.3) 08/30/24 23:13 RDW Coeff of [place] 13.4 % (11.5-14.5) 08/30/24 23:13 Plt Count 240 K/uL (130-400) 08/30/24 23:13 MPV 10.3 fL (9.4-12.4) 08/30/24 23:13 Immature Gran % (Auto) 0.9 % 08/30/24 23:13 Neut % (Auto) 83.4 % 08/30/24 23:13 Lymph % (Auto) 6.0 % 08/30/24 23:13 [place] % (Auto) 8.7 % 08/30/24 23:13 Eos % (Auto) 0.8 % 08/30/24 23:13 Baso % (Auto) 0.2 % 08/30/24 23:13 Neut # (Auto) 9.32 K/uL (1.40-6.50) H 08/30/24 23:13 Lymph # (Auto) 0.67 K/uL (1.20-3.40) L 08/30/24 23:13 [place] # (Auto) 0.97 K/uL (0.11-0.59) H 08/30/24 23:13 Eos # (Auto) 0.09 K/uL (0.00-0.50) 08/30/24 23:13 Baso # (Auto) 0.02 K/uL (0.00-0.20) 08/30/24 23:13 Immature Gran # (Auto) 0.10 K/uL (0.01-0.20) 08/30/24 23:13 PT 10.7 Seconds (9.0-12.0) 08/30/24 23:13 INR 1.0 (0.9-1.1) 08/30/24 23:13 APTT 30 Seconds (21-31) 08/30/24 23:13 PTT Ratio 1.1 08/30/24 23:13 VBG pH 7.17 (7.36-7.41) L 08/31/24 01:15 VBG pCO2 > 125 mmHg (38-50) H 08/31/24 01:15 VBG pO2 28 mmHg 08/31/24 01:15 VBG HCO3 TNP 08/31/24 01:15 VBG O2 Saturation < 60.0 % 08/31/24 01:15 VBG Base Excess TNP 08/31/24 01:15 Sodium 127 mmol/L (136-145) L 08/30/24 23:13 Potassium 4.6 mmol/L (3.5-5.1) 08/30/24 23:13 Chloride 75 mmol/L (98-107) L 08/30/24 23:13 Carbon Dioxide > 45 mmol/L (21-32) H* 08/30/24 23:13 Anion Gap TNP 08/30/24 23:13 BUN 10 mg/dl (6-23) 08/30/24 23:13 Creatinine 0.45 mg/dl (0.6-1.2) L 08/30/24 23:13 Est Cr Clr Drug Dosing 120.9 ml/min 08/30/24 23:13 eGFR 100.89 08/30/24 23:13 BUN/Creatinine Ratio 22.2 (10-20) H 08/30/24 23:13 Glucose 165 mg/dl (70-99(Fasting)) H 08/30/24 23:13 Osmolality 270 mOsm/kg (280-300) L 08/30/24 23:05 Calcium 9.2 mg/dl (8.6-10.3) 08/30/24 23:13 Magnesium 1.8 mg/dl (1.7-2.4) 08/30/24 23:13 Total Bilirubin 0.6 mg/dl (0.2-1.0) 08/30/24 23:13 AST 17 U/L (13-39) 08/30/24 23:13 ALT 10 U/L (7-52) 08/30/24 23:13 Alkaline Phosphatase 83 U/L (34-104) 08/30/24 23:13 Troponin I High Sens 11.3 pg/ml (0-14) 08/31/24 01:15 B-Natriuretic Peptide 140 pg/ml (0-100) H 08/30/24 23:13 Total Protein 7.2 gm/dl (6.0-8.3) 08/30/24 23:13 Albumin 4.1 gm/dl (3.4-5.0) 08/30/24 23:13 Globulin 3.1 gm/dl (2.5-4.0) 08/30/24 23:13 Albumin/Globulin Ratio 1.3 (0.9-2) 08/30/24 23:13 TSH 0.797 uIu/ml (0.300-4.500) 08/31/24 01:15 Urine Color Dark Yellow 08/31/24 01:10 Urine Appearance Clear (Clear) 08/31/24 01:10 Urine pH 5.5 (4.5-7.5) 08/31/24 01:10 Ur Specific [place] 1.036 (1.000-1.030) H 08/31/24 01:10 Urine Protein 2+ (Negative) H 08/31/24 01:10 Urine Glucose (UA) Negative (Negative) 08/31/24 01:10 Urine Ketones Trace (Negative) H 08/31/24 01:10 Urine Blood Negative (Negative) 08/31/24 01:10 Urine Nitrite Negative (Negative) 08/31/24 01:10 Urine Bilirubin 1+ (Negative) H 08/31/24 01:10 Urine Urobilinogen Negative (Negative) 08/31/24 01:10 Ur Leukocyte Esterase Negative (Negative) 08/31/24 01:10 Urine WBC (Auto) 0-5 /hpf (0-5) 08/31/24 01:10 Urine RBC (Auto) 3-5 /hpf (0-2) H 08/31/24 01:10 U Hyaline Cast (Auto) 3-5 /lpf (0-2) H 08/31/24 01:10 U Epithel Cells (Auto) 3-5 /hpf (0-2) H 08/31/24 01:10 Urine Bacteria (Auto) None Seen (None Seen) 08/31/24 01:10 Calcium Oxalate Crystal Present (None Prsent) A 08/31/24 01:10 Urine Osmolality 656 mOsm/kg (500-800) 08/31/24 01:10 Urine Comment 08/31/24 01:10 SARS-CoV-2 (PCR) NEGATIVE (Negative) 08/30/24 23:05 Impressions Chest CTA 08/30/24 23:13 EXAM: CT angio chest PE protocol CLINICAL HISTORY: Dyspnea TECHNIQUE: Contiguous axial images were obtained from the neck base through the upper abdomen following intravenous administration of iodinated contrast material. Angiographic images were processed, 3D MIP images were acquired for interpretation. If IV contrast material had not been administered, the likelihood of detecting abnormalities relevant to the patient's condition would have been substantially decreased. Coronal and sagittal 3-D MIPs were likewise performed and indicated to increase the sensitivity of detectin diffuse clinically relevant pathology. CT scan was performed according to ALARA (as low as reasonable achievable). COMPARISON: None. FINDINGS: Diffuse centrilobular, panlobular and paraseptal emphysema noted in both lungs. Mild dilatation of pulmonary trunk ,bilateral main pulmonary artery up to subsegmental level with mild tortuosity - suggest possibility of pulmonary arterial hypertension. Right side posterior fat containing diaphragmatic hernia. It causes passive subsegmental atelectasis of right basal segments. Few atelectatic bands are noted in right middle and right lower lobe. Adequate contrast bolus without evidence of pulmonary embolism. The central airways are patent No pleural effusion. The heart, aorta, and pulmonary arteries are of normal size and configuration. There are coronary artery and aortic atherosclerotic calcifications. No pericardial effusion is identified. The thyroid is unremarkable. No mediastinal, hilar, or axillary lymphadenopathy is noted. No suspicious lytic or sclerotic osseous lesions are identified. IMPRESSION: 1. No evidence of pulmonary embolism 2. Diffuse centrilobular, panlobular and paraseptal emphysema noted in both lungs.-stable. 3. Mild dilatation of pulmonary trunk ,bilateral main pulmonary artery up to subsegmental level with mild tortuosity - suggest possibility of pulmonary arterial hypertension. -stable. 4. Right side posterior fat containing diaphragmatic hernia. It causes passive subsegmental atelectasis of right basal segments.-stable. Electronically signed by Garry Ortega 08-31-2024 02:[address] head: 1. No evidence of acute intracranial abnormality is demonstrated. 2. Chronic microvascular ischemic changes. 3. Cerebral atrophy. Diagnostic Findings EKG as per my interpretation :Rate 95, NSR, normal axis, no ischemia
--- NOTE | 2024-08-31 02:57 | XRay Report ---
Exam(s): XR CXR 1 VIEW EXAM: XR Chest, 1 View CLINICAL HISTORY: Reason for exam: Dyspnea. TECHNIQUE: Frontal view of the chest. COMPARISON: 07/29/2023 FINDINGS: Lungs: There is pulmonary vascular congestion. There are bilateral infiltrates and/or areas of atelectasis.. Pleural space: There is a right pleural effusion.. No pneumothorax. Heart: Heart is enlarged.. Mediastinum: There is calcification of the thoracic aorta.. IMPRESSION: Cardiomegaly with pulmonary vascular congestion, left pleural effusion with bilateral areas of infiltrate and/or atelectasis may represent congestive heart failure/pulmonary edema. Electronically signed by: Jos Rueda MD 08/31/24 02:57 AM
--- NOTE | 2024-08-31 04:19 | CT Scan Report ---
EXAM: CT head/brain wo con CLINICAL HISTORY: ams TECHNIQUE: Multiple axial images are obtained from the skull base to the vertex without contrast. CT scan was performed according to ALARA (as low as reasonable achievable). COMPARISON: None. FINDINGS: There is cerebral atrophy. No evidence of space occupying lesion, hemorrhage, edema, mass effect, midline shift, extra axial collection, or hydrocephalus is noted. Basal cisterns are symmetric and normal in size and configuration. There are scattered periventricular hypodensities as can be seen with chronic microvascular ischemic changes. The sosa-white matter differentiation is preserved. Visualized paranasal sinuses and mastoid air cells are well aerated. Orbital contents are within normal limits. Bony structures are intact. IMPRESSION: 1. No evidence of acute intracranial abnormality is demonstrated. 2. Chronic microvascular ischemic changes. 3. Cerebral atrophy. Electronically signed by Garry Ortega 08-31-2024 04:18 AM
[2024-08-31 05:01] LABS: HCO3 VBG 57 mmol/L; Oxygen Saturation VBG < 60.0 %; PCO2 VBG 113 mmHg (38-50); PO2 VBG < 20 mmHg; pH VBG 7.31 (7.36-7.41)
[2024-08-31 05:14] LABS: Hematocrit (blood only) 38.6 % (37.0-47.0); Hemoglobin 12.5 g/dl (12.0-16.0); Mean Corpuscular Hemoglobin 28.5 pg (25.0-34.0); Mean Corpuscular Hgb Conc 32.4 g/dL (32.0-36.0); Mean Corpuscular Volume 87.9 fL (80.0-100.0); Mean Platelet Volume 10.4 fL (9.4-12.4); Platelet Count 187 K/uL (130-400); RDW Coefficient of Variation 13.3 % (11.5-14.5); RDW Standard Deviation 43.3 fL (36.4-46.3); Red Blood Count 4.39 M/uL (4.20-5.40); White Blood Count 8.75 K/ul (4.8-10.8)
[2024-08-31 05:23] LABS: Basophils # (auto) 0.01 K/uL (0.00-0.20); Basophils % (auto) 0.1 %; Eosinophils # (auto) 0.01 K/uL (0.00-0.50); Eosinophils % (auto) 0.1 %; Immature Granulocytes # (auto) 0.03 K/uL (0.01-0.20); Immature Granulocytes % (auto) 0.3 %; Lymphocytes # (auto) 0.22 K/uL (1.20-3.40); Lymphocytes % (auto) 2.5 %; Monocytes # (auto) 0.09 K/uL (0.11-0.59); Neutrophils # (auto) 8.39 K/uL (1.40-6.50); Stomatocytes 2+
[2024-08-31 05:25] LABS: BUN Creatinine Ratio 21.2 (10-20); Blood Urea Nitrogen 11 mg/dl (6-23); Calcium 9.1 mg/dl (8.6-10.3); Carbon Dioxide > 45 mmol/L (21-32); Chloride 72 mmol/L (98-107); Creatinine Clr Calc Pharmacy 102.8 ml/min; Glucose 167 mg/dl (70-99(Fasting)); Sodium 127 mmol/L (136-145)
[2024-08-31 07:31] VITALS: BP 110/70; PULSE 90; TEMP 97.3
[2024-08-31 07:36] VITALS: RESP 21
[2024-08-31 08:15] LABS: Estimated Average Glucose 111 mg/dl; Hemoglobin A1C 5.5 % (4.5-5.6)
[2024-08-31 08:16] LABS: Base Excess VBG 24.4 mEq/L; HCO3 VBG 56 mmol/L; Oxygen Saturation VBG < 60.0 %; PCO2 VBG 101 mmHg (38-50); PO2 VBG 30 mmHg; pH VBG 7.35 (7.36-7.41)
--- NOTE | 2024-08-31 08:34 | Cardiology Consultation ---
Date of Consultation August 31, 2024 Assessment & Plan (1) Acute respiratory failure with hypoxia: (2) Acute exacerbation of chronic obstructive airways disease: (3) Acute on chronic heart failure with preserved ejection fraction (HFpEF): (4) Pulmonary HTN: Plan Assessment: 74 year old female with known chronic lung disease and HFpEF presents to the ER with acute respiratory failure and hypoxia, Cardiology services requested for further evalution. Plan 1. Acute Respiratory failure with hypoxia 2. Acute exacerbation of COPD 3. Acute on Chronic HFpEF 4. Severe Pulmonary HTN -patient is resting in bed currently with BiPap in place saturating low 90's. She is not in acute distress, but denies any recall of why or how she came to the hospital -Chest xray and CT imaging demonstrate increased vascular congestion, but show evidence of bilateral infiltrates with concern for acute resp process. Continued management with IV antibiotics per primary team. -Blood cultures are pending -Patient demonstrates mild hypervolemia on exam; however, is responding to IV diuretics -550 fluid balance at this time. patient had received a 1 time dose (40mg) of IV lasix upon arrival to the ER and another dose (20mg) around 5am. Will continue to monitor I&O. patient has know chronic hyponatremia with today's serum sodium 128. Cautious with use of IV diuretics. -Hospitalist team has informed us that patient/family has opted to discontinue Bipap in favor of a more comfort measures process. Patient has known severe pulmonary HTN, continues with tobacco use and difficulty with medication compliance. We are in support of patient/family's goals of care. Case has been discussed with Dr. Angel. Further recommendations regarding plan of care as per his assessment. I spent a total of 40 minutes on the date of service in preparation, delivery, documentation of the care provided to the patient excluding any time spent in the performance of separately billed services. CARMEN Paul [facility] Cardiology [facility] Supervising Physician Co-Signing Physician Notes Case reviewed with CARMEN Chavez. After patient had goals of care discussion with Dr Sullivan comfort care strategy to be pursued. Shaista Angel DO Cardiology History of Present Illness Reason for Consultation: CHF Requesting Physician: [facility] hospitalist Attending Physician: Blayne Sullivan MD History of Present Illness HPI: Patient is a 74 year old female with PMHx significant for Chronic resp. failure s/t COPD, pulmonary HTN, HLD, Chronic diastolic HF, mixed valvular disease (moderate TR and Mild MR), AAA s/p repair, chronic hyponatremia, prior DVT, GERD, anxiety and ongoing tobacco use that presented to the ER with increased somnolence, a "junky cough", and an unknown amount of weight gain over the past few weeks. Patient continues to smoke and has a history of medication non-compliance. EKG on admission shows NSR with possible prior anterior infarct (previously cited), rate 94bpm Chest xray with cardiomegaly and increased pulmonary vasc congestion. Left pleural effusion with bilateral infiltrates CTA chest: IMPRESSION: 1. No evidence of pulmonary embolism 2. Diffuse centrilobular, panlobular and paraseptal emphysema noted in both lungs.-stable. 3. Mild dilatation of pulmonary trunk ,bilateral main pulmonary artery up to subsegmental level with mild tortuosity - suggest possibility of pulmonary arterial hypertension. -stable. 4. Right side posterior fat containing diaphragmatic hernia. It causes passive subsegmental atelectasis of right basal segments.-stable. Received a total of 60mg IV lasix in the ER Received IV mag supplementation Received IV Rocephin and Unasyn for broad spectrum coverage --> Blood cultures pending Upon seeing patient this morning, she is awake resting in bed with BiPaP in place. Patient has no recall of coming to the hospital yesterday or why she came to the hospital so HPI is difficult to obtain. She denies any chest pain, pressure or palpitations, is unsure about weight gain. Family is not present at this time. Review of telemetry shows SR with PAC's rates 80-90's Allergies Allergy/AdvReac Type Severity Reaction Status Date / Time aspirin Allergy Unknown Verified 07/23/23 16:50 Home Medications Medication Instructions Recorded Confirmed Type furosemide 20 mg tablet 20 mg PO QAM #30 tabs 07/30/23 08/30/24 Rx loratadine 10 mg tablet (Wal-itin) 10 mg PO QAM PRN Allergic Symptoms 07/30/23 08/30/24 Rx #30 tabs umeclidinium 62.5 mcg-vilanterol 1 inh inhalation DAILY #60 ea 07/30/23 08/30/24 Rx 25 mcg/actuation powdr for inhalation (Anoro Ellipta) albuterol sulfate 90 mcg/actuation 1 - 2 puff inhalation UD PRN 08/30/24 08/30/24 History aerosol inhaler (Ventolin HFA) DIRECTED atorvastatin 40 mg tablet 40 mg PO UD 08/30/24 08/30/24 History solifenacin 5 mg tablet 5 mg PO UD 08/30/24 08/30/24 History Patient History Medical History (Updated 08/31/24 @ 10:05 by CARMEN Paul) Sigmoid diverticulitis DVT of upper extremity (deep vein thrombosis) catheter-associated, completed 30 days Eliquis Surgical History S/P tonsillectomy S/P AAA repair Social History Smoking Status: Current every day smoker Tobacco Type: Cigarettes Cigarettes Per Day: 20; Do You Dip or Chew Tobacco: No; Hx Alcohol Use: No Hx Substance Use: No Preferred Language: Wallisian Communication Ability: Effective 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 Beliefs That Will Affect Care: None Current Living Situation: Alone Feels Safe at Home: Yes Safety Concerns: Feels Safe At This Time Assistive Devices: Walker Review of Systems Review of Systems: All systems reviewed & are unremarkable except as noted in HPI & below limited ROS due to patient on bipap, yes and no questions Physical Exam Constitutional: well developed, well nourished and + ill appearing; no acute distress Neck: normal visual inspection and trachea midline Respiratory: normal respiratory effort and + tachypneic; no respiratory distress, no labored breathing and no cough Auscultation: + diminished lung sounds (diminished throughout) and + crackles (lower right base) Cardiovascular: Rate/Rhythm: regular rate and regular rhythm Heart Sounds: normal S1, normal S2 and + murmur (+1/6 systolic) Vessels: no JVD Extremities: no edema Skin: no rashes, warm and dry Psychiatric: Orientation: alert, oriented to person and oriented to place Affect: euthymic affect Results & Data Vital Signs (Past 12 Hours) Vital Signs Temp Pulse Pulse Resp BP BP BP 08/31/24 07:34 21 08/31/24 07:30 36.3 C L 90 20 110/70 08/31/24 06:03 114/73 08/31/24 04:22 36.5 C 85 20 114/74 08/31/24 04:07 82 08/31/24 04:07 08/31/24 03:46 08/31/24 03:25 123/86 08/31/24 03:21 90 25 H 08/31/24 03:03 87 21 08/31/24 03:03 87 08/31/24 02:25 79 20 08/31/24 01:31 08/31/24 01:26 08/31/24 01:23 85 22 111/66 08/31/24 00:00 91 H 23 08/30/24 23:13 93 H 30 H 08/30/24 23:01 89 08/30/24 22:58 36.5 C 91 H 29 H 129/75 Pulse Ox O2 Del Method O2 Flow Rate FiO2 08/31/24 07:34 98 40 08/31/24 07:30 98 BiPAP 08/31/24 06:03 08/31/24 04:22 96 BiPAP 08/31/24 04:07 08/31/24 04:07 BiPAP 50 08/31/24 03:46 BiPAP 08/31/24 03:25 08/31/24 03:21 94 BiPAP 08/31/24 03:03 95 BiPAP 08/31/24 03:03 08/31/24 02:25 95 35 08/31/24 01:31 BiPAP 08/31/24 01:26 98 BiPAP 08/31/24 01:23 98 BiPAP 08/31/24 00:00 93 60 08/30/24 23:13 94 Oxymask 6 08/30/24 23:01 08/30/24 22:58 98 Non-rebreather 5 Laboratory Results Cardiac Enzymes 08/30/24 08/31/24 Range/Units 23:13 01:15 AST 17 (13-39) U/L Troponin I High Sens 11.1 11.3 (0-14) pg/ml B-Natriuretic Peptide 140 H (0-100) pg/ml Coagulation 08/30/24 Range/Units 23:13 PT 10.7 (9.0-12.0) Seconds APTT 30 (21-31) Seconds B-Natriuretic Peptide 140 H (0-100) pg/ml CBC 08/30/24 08/31/24 Range/Units 23:13 04:53 WBC 11.17 H 8.75 (4.8-10.8) K/ul RBC 4.46 4.39 (4.20-5.40) M/uL Hgb 12.7 12.5 (12.0-16.0) g/dl Hct 39.0 38.6 (37.0-47.0) % Plt Count 240 187 (130-400) K/uL Neut # (Auto) 9.32 H 8.39 H (1.40-6.50) K/uL Lymph # (Auto) 0.67 L 0.22 L (1.20-3.40) K/uL [place] # (Auto) 0.97 H 0.09 L (0.11-0.59) K/uL Eos # (Auto) 0.09 0.01 (0.00-0.50) K/uL Baso # (Auto) 0.02 0.01 (0.00-0.20) K/uL Comprehensive Metabolic Panel 08/30/24 08/31/24 Range/Units 23:13 04:53 Sodium 127 L 127 L (136-145) mmol/L Potassium 4.6 5.0 (3.5-5.1) mmol/L Chloride 75 L 72 L (98-107) mmol/L Carbon Dioxide > 45 H* > 45 H* (21-32) mmol/L BUN 10 11 (6-23) mg/dl Creatinine 0.45 L 0.52 L (0.6-1.2) mg/dl Glucose 165 H 167 H (70-99(Fasting)) mg/dl Calcium 9.2 9.1 (8.6-10.3) mg/dl AST 17 (13-39) U/L ALT 10 (7-52) U/L Alkaline Phosphatase 83 (34-104) U/L Total Protein 7.2 (6.0-8.3) gm/dl Albumin 4.1 (3.4-5.0) gm/dl Intake and Output 08/30/24 08/31/24 08/31/24 22:59 06:59 14:59 Intake Total 250 / 250 Output Total 800 / 800 Balance -550 / -550 Intake: IV 250 / 250 Ampicillin/Sulbactam Sod 3,000 100 / 100 mg In 100 ml @ 200 mls/hr IV Q6H SHAILESH Rx#:[id number] Magnesium Sulfate / D5w 1 gm In 100 / 100 100 ml @ 50 mls/hr IV ONE ONE Rx#:[id number] cefTRIAXone SODIUM 2,000 mg In 50 / 50 50 ml @ 100 mls/hr IV NOW STA Rx#:[id number] Output: Urine Amount (Catheter) 800 / 800 Mallory/Indwelling 800 / 800 Other: Weight 89.1 kg 86.046 kg Weight Measurement Method Built in [facility] Diagnostic Findings Echocardiogram 07/24/23 LV hyperdynamic LVEF > 70% RV moderately dilated RA moderately dilated Mild TR PASP 72mmHg dilated IVC with RAP 8mmHg
--- NOTE | 2024-08-31 09:07 | Pulmonary Consultation ---
Date of Consultation August 31, 2024 Assessment & Plan (1) Acute on chronic heart failure with preserved ejection fraction (HFpEF): (2) Acute on chronic respiratory failure with hypoxia and hypercapnia: (3) Acute exacerbation of chronic obstructive airways disease: (4) COPD (chronic obstructive pulmonary disease): COPD type: emphysema Emphysema type: unspecified Qualified Code(s): J43.9 - Emphysema, unspecified (5) Pulmonary HTN: Plan CT chest 08/31/2024 personally reviewed: Severe centrilobular emphysema appreciated bilaterally Volume loss on the right side with dependent atelectasis of the right lower lobe Diaphragmatic hernia right side posteriorly consistent mostly of fat No significant mediastinal lymphadenopathy 2D echo 07/24/2023: EF greater than 70%, RV moderately dilated with normal function, PASP 72 mmHg, RA moderately dilated Initial VBG 08/30/2024: 7.21/>125, repeat VBG 08/31/2024 on BiPAP 7.35/101 --Acute on chronic hypoxic hypercapnic respiratory failure Likely secondary to COPD exacerbation Hypoxia is from underlying COPD Hypercapnia is also from underlying severe COPD BiPAP nightly and as needed shortness of breath Patient will benefit from AVAPS machine at home Negative for COVID-19 on 08/30/2024 --Severe COPD with emphysema Gold E Currently only on Anoro at home. Would recommend Trelegy 200 on discharge Recommend nebulized while hospitalized along with Incruse Continue with Solu-Medrol and antibiotic -- Pulmonary hypertension Likely type III Plan: Patient does have severe COPD and she will benefit from AVAPS machine at home but apparently patient does not want to use BiPAP when she is alert Dr. Sullivan who was present in the room had just discussed the patient's condition with daughter of the patient who is the POA and they have decided to transition her to comfort measures Would recommend nasal cannula to keep O2 saturation between 90-92% given the pulmonary hypertension. Sometimes high flow can be used as it has been proven to be beneficial in mild degree of hypercapnia. Overall I agree with the decision given severe COPD and poor prognosis Pulmonary will be available if need be with any questions No further recommendation from pulmonary perspective, will sign off I spent more than 75 minutes looking in the chart, images, discussing the plan of care with the patient, RN as well as primary team Please note the above document was generated using voice recognition software. It may contain grammatical, syntax or spelling errors.Any formal questions or concerns about the content, text or information contained within the body of this dictation should be directly addressed to the provider for clarification. History of Present Illness Attending Physician: Blayne Sullivan MD History of Present Illness 74-year-old female admitted to the hospital for encephalopathy and hypercapnia Past medical history: COPD, dyslipidemia, hypertension, AAA s/p surgery, history of DVT, dementia Pulmonary consulted for optimization of her COPD and hypercapnia At the time of examination Dr. Sullivan was in the room. She was just taken off of BiPAP. She was awake and alert, answering questions appropriately Denied any chest pain. She knew her name and where she was No abdominal pain, no nausea vomiting She is at baseline oxygen at home. When the BiPAP was taken off she did start to desaturate into the low 80s. I discussed with nurse to start her on oxygen. Please make note that the patient is poor historian with tangential thoughts. History was obtained from primary team as well as previous records Social history: Approximately [id number] smoking history Allergies Allergy/AdvReac Type Severity Reaction Status Date / Time aspirin Allergy Unknown Verified 07/23/23 16:50 Home Medications Medication Instructions Recorded Confirmed Type furosemide 20 mg tablet 20 mg PO QAM #30 tabs 07/30/23 08/30/24 Rx loratadine 10 mg tablet (Wal-itin) 10 mg PO QAM PRN Allergic Symptoms 07/30/23 08/30/24 Rx #30 tabs umeclidinium 62.5 mcg-vilanterol 1 inh inhalation DAILY #60 ea 07/30/23 08/30/24 Rx 25 mcg/actuation powdr for inhalation (Anoro Ellipta) albuterol sulfate 90 mcg/actuation 1 - 2 puff inhalation UD PRN 08/30/24 08/30/24 History aerosol inhaler (Ventolin HFA) DIRECTED atorvastatin 40 mg tablet 40 mg PO UD 08/30/24 08/30/24 History solifenacin 5 mg tablet 5 mg PO UD 08/30/24 08/30/24 History Patient History Medical History (Updated 08/31/24 @ 14:28 by Homero Cespedes MD, [facility]) Sigmoid diverticulitis DVT of upper extremity (deep vein thrombosis) catheter-associated, completed 30 days Eliquis Surgical History S/P tonsillectomy S/P AAA repair Social History Smoking Status: Current every day smoker Tobacco Type: Cigarettes Cigarettes Per Day: 20; Do You Dip or Chew Tobacco: No; Hx Alcohol Use: No Hx Substance Use: No Preferred Language: Sammarinese Communication Ability: Effective Director Patient Required: No Beliefs That Will Affect Care: Spiritual Current Living Situation: Alone Feels Safe at Home: Yes Safety Concerns: Feels Safe At This Time Assistive Devices: Oxygen - Continuous Review of Systems 2 Review of Systems: All systems reviewed & are unremarkable except as noted in HPI & below Physical Exam 2 Physical Exam: Constitutional: No acute distress HEENT: EOMI, PERRLA Respiratory system: Decreased air entry bilaterally, no wheeze, no rhonchi, mild crackles bilateral lower lobes CVS: S1-S2 positive, no murmurs or gallops Abdomen: Soft, nontender, nondistended, positive bowel sounds x4 Extremities: +2 pulses bilaterally radialis/ dorsalis pedis, no cyanosis, minimal ankle edema bilateral lower extremity Neuro: Awake alert oriented only to self Psych: Normal mood and affect G/U: Positive Mallory Skin: no rashes, warm and dry Lymphatic: no cervical or axillary lymphadenopathy Results & Data Results & Data Vital Signs (Past 12 Hours) Vital Signs Temp Pulse Pulse Resp BP BP BP 08/31/24 07:34 21 08/31/24 07:30 36.3 C L 90 20 110/70 08/31/24 06:03 114/73 08/31/24 04:22 36.5 C 85 20 114/74 08/31/24 04:07 82 08/31/24 04:07 08/31/24 03:46 08/31/24 03:25 123/86 08/31/24 03:21 90 25 H 08/31/24 03:03 87 21 08/31/24 03:03 87 08/31/24 02:25 79 20 08/31/24 01:31 08/31/24 01:26 08/31/24 01:23 85 22 111/66 08/31/24 00:00 91 H 23 08/30/24 23:13 93 H 30 H 08/30/24 23:01 89 08/30/24 22:58 36.5 C 91 H 29 H 129/75 Pulse Ox O2 Del Method O2 Flow Rate FiO2 08/31/24 07:34 98 40 08/31/24 07:30 98 BiPAP 08/31/24 06:03 08/31/24 04:22 96 BiPAP 08/31/24 04:07 08/31/24 04:07 BiPAP 50 08/31/24 03:46 BiPAP 08/31/24 03:25 08/31/24 03:21 94 BiPAP 08/31/24 03:03 95 BiPAP 08/31/24 03:03 08/31/24 02:25 95 35 08/31/24 01:31 BiPAP 08/31/24 01:26 98 BiPAP 08/31/24 01:23 98 BiPAP 08/31/24 00:00 93 60 08/30/24 23:13 94 Oxymask 6 08/30/24 23:01 08/30/24 22:58 98 Non-rebreather 5 Laboratory Results 08/31/24 04:53 08/31/24 07:54 PG Care Time/CCT Total # of Minutes Spent Total Time Spent with Patient: Total time spent is greater than 50% in coordination of care (as documented) at patient's floor/unit and/or counseling patient: Coding Level of Care Code 27292 INT INP/OBS CARE 3/75MIN Diagnoses Acute on chronic heart failure with preserved ejection fraction (HFpEF) I50.33 Acute on chronic respiratory failure with hypoxia and hypercapnia J96.21; J96.22 Acute exacerbation of chronic obstructive airways disease J44.1 Pulmonary emphysema, unspecified emphysema type J43.9 COPD type: emphysema Emphysema type: unspecified Pulmonary HTN I27.20
[2024-08-31 09:43] VITALS: O2SAT 93
--- NOTE | 2024-08-31 11:33 | Electrocardiogram Report ---
Test Reason : Blood Pressure : */* mmHG Vent. Rate : 94 BPM Atrial Rate : 94 BPM P-R Int : 126 ms QRS Dur : 82 ms QT Int : 328 ms P-R-T Axes : 50 48 57 degrees QTcB Int : 410 ms Normal sinus rhythm Normal ECG When compared with ECG of 23-Jul-2023 10:46, No significant change was found Confirmed by Albin Carlos ([id number]) on 08/31/2024 11:32:59 AM Referred By: REFERRED SELF Confirmed By: Albin Carlos
--- NOTE | 2024-08-31 12:34 | Communication Note ---
[facility] minutes spent on phone and in person with family (JUDY Kumar, paperwork presented and now in chart, patient also told me she wanted Stacy to make decisions on her behalf) regarding goals and values. Meeting started with introducing clinical condition (phone call to Stacy before this as well discussing) including Bipap dependent acute on chronic hypercarbic/hypoxic respiratory failure 2/2 end stage COPD/pulmonary HTN. Discussed that patient was pulling off mask and stating she did not want it on. Stacy states this is likely true as she is noncompliant with medical therapies at home and continues to smoke tobacco. Has had many recent admissions for similar issues. Patient for past few days has been talking to ancestors and not doing well. Discussed that patient is not orriented to make decisions but her wishes ethically should be considered while making decisions. Stacy and family state that she would not want to live like this and they do not want her to suffer. This provider discussed that her prognosis even with treatment is likely on scale of months, and without treatment is likely on scale of days to weeks. They understand this, and do not want her to suffer. They want to focus on comfort only at this time. Stacy in agreement with family. Date of Service: August 31, 2024
--- NOTE | 2024-09-01 15:48 | Discharge Summary ---
Discharge Summary Date of Service September 01, 2024 Principal Dx & Hospital Course #1 = Principal Diagnosis (1) Acute respiratory failure with hypoxia: Assessment and plan below following discussion of case with ED provider and reviewing patient history/pertinent normal/abnormal diagnostic test results. Acute on chronic hypoxemic, hypercapnic respiratory failure chronic respiratory failure secondary to COPD/pulmonary hypertension Possible underlying OHS History of medical noncompliance Multifactorial: COPD exacerbation secondary to possible aspiration pneumonitis Decompensated heart failure, history of diastolic dysfunction Hypoactive delirium on dementia secondary to above Acute on chronic hypoosmolar hyponatremia secondary to hypervolemia/fluid retention hyperlipidemia on statin Rx valvular heart disease (moderate TR/mild MR) AAA status post surgery hx DVT as per records prediabetes, hemoglobin A1c of 5.9 from last year ongoing tobacco abuse -GOC discussed with patient and daughter, family opted for comfort focused care -patient woke up this morning, agrees with comfort focused care, signed [facility] with [facility] -discharged home with hospice services, home care kit Notes For Next Care Provider 74 yo female with pmhx of chronic respiratory failure secondary to COPD/pulmonary hypertension, hyperlipidemia, chronic diastolic heart failure (EF 70%, TTE 2023 ), valvular heart disease (moderate TR/mild MR), AAA status post surgery, chronic hyponatremia, DVT as per records, prediabetes, GERD, diverticulitis as per records, urinary incontinence, dementia as per records, anxiety disorder, ongoing tobacco abuse. Prsented obtunded, found to be hypercarbic, admitted to medicine on Bipap. On medicine, patient daughter opted for comfort care, when patient woke up next day patient agreed with this. Signed on with [facility]. Prognosis on scale of weeks to months given severity of COPD. On 09/01/2024 patient discharged home with hospice services. Medication Changes From Visit -see below Admission HPI Per Admitting Provider History obtained from patient's family and records. Limited history from patient secondary to obtunded state. Medical history significant for chronic respiratory failure secondary to COPD/pulmonary hypertension, hyperlipidemia, chronic diastolic heart failure (EF 70%, TTE 2023 ), valvular heart disease (moderate TR/mild MR), AAA status post surgery, chronic hyponatremia, DVT as per records, prediabetes, GERD, d iverticulitis as per records, urinary incontinence, dementia as per records, anxiety disorder, ongoing tobacco abuse. Last confinement July 2023 for acute on chronic hypoxic, hypercapnic respiratory failure secondary to COPD exacerbation and right-sided heart failure. Patient evaluated by cardiology and pulmonology during confinement. Patient still smoking and noncompliant with home medications upon return home as per daughter. Patient still smoking. Unquantified weight gain over the last few weeks. Patient known to snore as per daughter. Worsening junky cough symptoms over the last few days. Not sure about sick contacts as per daughter. Gurgly voice noted by daughter, possible aspiration. Patient noted to be increasingly sleepy since yesterday. Lowest O2 sats of 80s documented at patient's regular home. EMS called the patient's home. Solu-Medrol, Lasix, neb treatment and ceftriaxone administered at the ER. BiPAP initiated at the ER. Medical History as above Surgical History : AAA repair, tonsillectomy Family History : Could not be obtained secondary to obtunded state Personal/Social history : 1 pack daily, no EtOH intake, lives with daughter, partial ethnicity as per daughter Discharge Exam Gen: A&O 2-3 NAD HEENT: NCAT, EOMI, not icteric. External ears normal. No rhinorrhea. Moist mucous membranes. Neck: Supple, full range of motion, no observable masses, No meningeal sign. Lungs: very poor air movement bilaterally CV: RRR, no edema. Abdomen: Soft, nondistended, No rebound tenderness. MSK: No joint swelling, no redness. Skin: No rashes, petechiae, lesions. Normal color per patient. Neuro: Normal Gait, Grossly intact. Psych: Appropriate for situation. Updated Medication List Medication Instructions Recorded Confirmed Type furosemide 20 mg tablet 20 mg PO QAM #30 tabs 07/30/23 08/30/24 Rx umeclidinium 62.5 mcg-vilanterol 1 inh inhalation DAILY #60 ea 07/30/23 08/30/24 Rx 25 mcg/actuation powdr for inhalation (Anoro Ellipta) albuterol sulfate 90 mcg/actuation 1 - 2 puff inhalation UD PRN 08/30/24 08/30/24 History aerosol inhaler (Ventolin HFA) DIRECTED atorvastatin 40 mg tablet 40 mg PO UD 08/30/24 08/30/24 History bisacodyl 10 mg rectal suppository 10 mg VA DAILY PRN constipation 09/01/24 Rx #12 ea lorazepam 0.5 mg tablet (Ativan) 0.5 mg PO Q8H PRN anxiety #7 tabs 09/01/24 Rx morphine 20 mg/5 mL (4 mg/mL) oral 5 mg (1.25 mL) PO Q2H PRN pain 09/01/24 Rx solution #100 mL ondansetron 4 mg disintegrating 4 mg PO Q8H PRN nausea and 09/01/24 Rx tablet vomiting 4 days #14 tabs polyethylene glycol 3350 17 17 g PO DAILY PRN constipation 09/01/24 Rx gram/dose oral powder (Miralax) #119 grams Hospital Stay Data Consultations 08/31/24 02:12 ED Decision to Admit Stat Diagnostic Imagining Performed 08/30/24 23:13 CT angio chest PE protocol Stat 08/31/24 02:52 CT head/brain wo con Stat Pending Results Patient Have Any Pending Studies at Discharge: No Discharge Instructions Given to Patient (Per Discharging Provider) 1. Going home on home hospice. 2. Please waste picker care kit from pharmacy. Total Time Total Time Spent Total Time Spent (In Minutes): I spent a total of 35 minutes in direct patient care, including [id number] time with the patient and/or family, reviewing medical records, ordering and reviewing diagnostic tests, and coordinating care with other healthcare providers. This time includes: history taking, physical examination, medical decision making, counseling, ECG interpretation, imaging interpretation, lab interpretation, orders, and education, excluding time spent in the performance of separately billed services.
== END 2024-09-01 15:50 | disposition hospice, home (50) ==
LOC: ED 22:51 → 2S 08-31 02:32 → 3E 08-31 12:38